=== PATIENT | female | born 1985 | race Caucasian/White ===

== ENCOUNTER 2019-04-10 21:14 | Inpatient (IN) | payer MEDICARE, BC ==
[~2019-04-10] VITALS: Ht 154.9 cm; Wt 82.9 kg
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
[2019-04-10] MEDS ORDERED: loperamide 2mg capsule PO PRN (21:35)
[2019-04-10] MEDS ORDERED: SYN0.088T PO (22:13)
[2019-04-10] MEDS ORDERED: THY60T PO (22:13)
[2019-04-10] MEDS ORDERED: LITH150C8 PO (22:13)
[2019-04-10] MEDS ORDERED: ZIPR20CA2 PO (22:13)
[2019-04-10] MEDS ORDERED: DULO-31 PO (22:13)
[2019-04-10] MEDS: lithium carbonate 150mg capsule PO SCH (22:35)
[2019-04-10] MEDS: ziprasidone 20mg capsule PO SCH (22:36)
[2019-04-10] MEDS: LORazepam 1 MG tablet PO PRN (23:02)
[2019-04-10] MEDS ORDERED: LORazepam 1 MG tablet PO ONE (23:15)
[2019-04-10] MEDS ORDERED: OLANZapine 5mg rapidly disint. tablet PO ONE (23:15)
[2019-04-10] MEDS: acetaminophen 325mg tablet PO PRN (23:31)
[2019-04-11] MEDS ORDERED: levoTHYROXINE 25mcg tablet PO SCH (07:00)
[2019-04-11 07:18] VITALS: BP 115/68
[2019-04-11 07:28] LABS: CHOL/HDL RATIO 3.5 (0.00-4.99); CHOLESTEROL 152 MG/DL (0-200); HDL CHOLESTEROL 44 MG/DL (35-60); LDL CHOLESTEROL 91 MG/DL (50-100); TRIGLYCERIDES 99 MG/DL (20-135)
[2019-04-11] MEDS: lithium carbonate 150mg capsule PO SCH ×2 (07:59→13:06)
[2019-04-11] MEDS: ziprasidone 20mg capsule PO SCH (07:59)
[2019-04-11] MEDS: LORazepam 1 MG tablet PO PRN ×2 (08:52→14:58)
[2019-04-11] MEDS ORDERED: tuberculin, purif. prot. deriv. 5 units/0.1ml ID ONE (10:00)
--- NOTE | 2019-04-11 11:20 | NUR ---
Malnutrition consult: Pt admit w/ depression noted to have no edema/wounds, no weakness, PO 100% regular meals meeting needs w/ BMI 33. At this time pt does not qualify for malnutrition. Addendum: 04/11/19 at [address] Amended: Links added.
[2019-04-11] MEDS ORDERED: nicotine 21mg patch - 24 hr TD ONE (11:35)
[2019-04-11] MEDS: hydrOXYzine 25 MG tablet PO PRN ×2 (12:54→18:57)
[2019-04-11] MEDS ORDERED: PROP20TA6 PO (13:46)
[2019-04-11] MEDS ORDERED: OXYC5TAB2 PO (13:46)
[2019-04-11] MEDS ORDERED: AMOX-580 PO (13:46)
[2019-04-11] MEDS ORDERED: SPIR50TA5 PO (13:46)
[2019-04-11] MEDS ORDERED: FENT-16 TOP (13:48)
[2019-04-11] MEDS ORDERED: VALA500T37 PO (13:49)
[2019-04-11] MEDS ORDERED: CLON1TAB23 PO (13:50)
[2019-04-11] MEDS: fentaNYL 25MCG/hour patch.TD72 TD SCH (14:54)
[2019-04-11] MEDS: acetaminophen 325mg tablet PO PRN (14:58)
[2019-04-11] MEDS ORDERED: olanzapine 10mg tablet PO PRN (15:45)
[2019-04-11] MEDS ORDERED: olanzapine 10mg tablet PO ONE (15:45)
[2019-04-11] MEDS ORDERED: oxyCODONE IR 5mg (immed. release) tablet PO ONE (16:25)
[2019-04-11] MEDS ORDERED: duloxetine 30mg CAPSULE.DR PO ONE (16:35)
[2019-04-11] MEDS: LORazepam 1 MG tablet PO SCH (16:52)
[2019-04-11] MEDS: levoTHYROXINE 88mcg tablet PO SCH (17:18)
--- NOTE | 2019-04-11 18:04 | NUR ---
Nursing Progress Note Legal hold: 5150 Client on involuntary status for DTS. Report received from Nadya AVERY, with use of SBAR. Why are they here: The patient is a 33 year old female admitted on a 5150 hold for DTS. She was transported by EMS from [facility] after being evaluated by [facility] and a 5150 was written. She reportedly took 20 Klonopin tabs in a suicide attempt. While in there ER she AWOL'd from the ER. She was in physical restraints for over 24 hours at one point. When asked why she was in restraints she stated "because the doctor was a bitch" She also required increase observation while using the bathroom because she was engaging in self harm behaviors. She has an open area on her left hand from scratching. Assessment What has happened this shift: Pt resting at change of shift. Once awake she reports needing a nicotine patch, Ativan and a Fentanyl patch for pain. Drive In Theater Attendant encouraged her to take a hot shower to assist with pain management, which she reports did not help. Drive In Theater Attendant consulted with Dr Dow, Dr Saldana and pharmacy staff to get patch filled. Her Fentanyl patch from admit was removed and wasted with Lester AVERY. New patch was placed on Left Lower Abdomen. She has utilized her Ativan X2, Atarax today. Her Synthroid was also increased today. She was given oxycodone PO X1 to manage her pain which she consistently c/o all day. She was tearful and anxious all day. By the end of shift she was resting peacefully. PPD placed today. Assessment: SI/HI: Confirms SI, says it worsens with pain A/VH: report Sleep: 7.25 hrs NOC ADL's: independent Group attendance: yes Were Meds taken: Yes Any med S/E: Reports she has reaction to metal in nicotine patch and would like it changed to the clear kind Mental Status Exam Appearance: clean, hair braided Eye contact: direct, thick glasses Behavior: anxious, pained Speech: clear, normal rate and rhythm Mood: anxious, depressed Affect: depressed Thought process: linear Thought Content: focused on pain management Cognition: A & O X4 Insight: fair Judgment: poor Interventions PRN's used: Ativan X2, Atarax, Nicotine patch Therapeutic interventions: attempted 1:1 assessment, provided therapeutic communication, redirection from excessive drinking when needed, encouraged to go to groups, medication administration/education/monitoring for compliance, monitor Q15 minutes for safety. Line of sight Restraints/seclusion/emergency medication: Line of Sight Justification of Continued Inpatient Treatment: Pt. had a severe suicide attempt further medication adjustment to stabilize current crisis is needed. Without adequate treatment for current situation, pt is at high risk for readmission if discharged at this time.
[2019-04-11 19:57] VITALS: BP 103/49
[2019-04-11] MEDS: propranolol 10mg tablet PO SCH (20:54)
[2019-04-11] MEDS: lithium carbonate 450mg CR tablet PO SCH (20:56)
[2019-04-11] MEDS: traZODone 50mg tablet PO PRN (20:56)
[2019-04-11] MEDS: olanzapine 10mg tablet PO SCH (20:56)
--- NOTE | 2019-04-11 23:42 | NUR ---
Nursing Progress Note Legal hold: 5150 Client on involuntary status for DTS. Report received from Lester AVERY, with use of SBAR. Why are they here: The patient is a 33 year old female admitted on a 5150 hold for DTS. She was transported by EMS from [facility] after being evaluated by [facility] and a 5150 was written. She reportedly took 20 Klonopin tabs in a suicide attempt. While in there ER she AWOL'd from the ER. She was in physical restraints for over 24 hours at one point. When asked why she was in restraints she stated "because the doctor was a bitch" She also required increase observation while using the bathroom because she was engaging in self harm behaviors. She has an open area on her left hand from scratching. Assessment What has happened this shift: Patient is in bed with head covered at change of shift. She has a sitter at her bedside. Patient agrees to a 1:1 assessment. She states she is still having suicidal thoughts with a plan and expresses "That there's less risk (of her acting on her SI), I feel safe here." When asked if she would contract for safety she states "There is still some risk". She states she has 10/10 depression and that she is still having AH. She say's she feels better and that her pain has decreased to 6/10. Patient is isolative and does not leave her room or bed this shift except to use the restroom. She is compliant with her evening medications. Assessment: SI/HI: Confirms SI, states "There's less risk, I feel safe here." But would not contract for safety stating "There is still some risk." A/VH: AH Sleep: See sleep assessment ADL's: Independent Group attendance: No groups this shift Were Meds taken: Yes Any med S/E: None reported or observed Mental Status Exam Appearance: Clean, hair braided Eye contact: Direct, legally blind, but still has minimal vision looks at person talking. Behavior: Anxious, isolative Speech: Clear, normal rate and rhythm Mood: Anxious, depressed Affect: Congruent to mood Thought process: Linear Thought Content: Focused on her anxiety Cognition: A & O X4 Insight: Fair Judgment: Poor Interventions PRN's used: Atarax Therapeutic interventions: 1:1 assessment at bedside, provided therapeutic communication, encouraged to go to groups, medication administration/education/monitoring for compliance, monitor Q15 minutes for safety. Line of sight Restraints/seclusion/emergency medication: Line of Sight Justification of Continued Inpatient Treatment: Pt. had a severe suicide attempt further medication adjustment to stabilize current crisis is needed. Without adequate treatment for current situation, pt is at high risk for readmission if discharged at this time.
[2019-04-12] MEDS: levoTHYROXINE 88mcg tablet PO SCH (07:04)
[2019-04-12 07:39] VITALS: BP 114/64
[2019-04-12 07:42] VITALS: BP 113/63
[2019-04-12] MEDS ORDERED: duloxetine 30mg CAPSULE.DR PO SCH (08:00)
[2019-04-12] MEDS: spironolactone 50 MG tablet PO SCH (08:35)
[2019-04-12] MEDS: olanzapine 10mg tablet PO SCH ×2 (08:36→20:21)
[2019-04-12] MEDS: duloxetine 30mg CAPSULE.DR PO SCH (08:36)
[2019-04-12] MEDS: propranolol 10mg tablet PO SCH ×3 (08:36→20:20)
[2019-04-12] MEDS: LORazepam 1 MG tablet PO SCH ×3 (08:36→19:02)
[2019-04-12] MEDS: thyroid, pork 30mg tablet PO SCH (08:37)
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
[2019-04-12] MEDS: hydrOXYzine 25 MG tablet PO PRN (10:55)
[2019-04-12] MEDS: nicotine 21mg patch - 24 hr TD SCH (10:56)
--- NOTE | 2019-04-12 15:56 | NUR ---
Nursing Progress Note Legal hold: 5150 Client on involuntary status for DTS. Report received from Lester AVERY, with use of SBAR. Why are they here: The patient is a 33 year old female admitted on a 5150 hold for DTS. She was transported by EMS from [facility] after being evaluated by [facility] and a 5150 was written. She reportedly took 20 Klonopin tabs in a suicide attempt. While in there ER she AWOL'd from the ER. She was in physical restraints for over 24 hours at one point. When asked why she was in restraints she stated "because the doctor was a bitch" She also required increase observation while using the bathroom because she was engaging in self harm behaviors. She has an open area on her left hand from scratching. Assessment What has happened this shift: Patient is in bed with head covered at change of shift observation. She has a sitter at her bedside. Patient agrees to a 1:1 assessment. Asked how she felt today in terms of safety patient responded "I'm very suicidal. I still need someone to watch me. Probably for the next 24 hours." When asked if she would contract for safety patient stated "I'll let you know if it gets bad." Did not mention physical pain this shift. Scheduled Ativan given at 1230. Patient slept for remainder of afternoon except to use bathroom. Assessment: SI/HI: Admits to SI A/VH: AH Sleep: Napped this afternoon ADL's: Independent/Showered Group attendance: No groups this shift Were Meds taken: Yes Any med S/E: None reported or observed Mental Status Exam Appearance: Clean, hair braided Eye contact: Direct, legally blind, but still has minimal vision looks at person talking. Behavior: Anxious, isolative Speech: Clear, normal rate and rhythm Mood: Anxious, depressed Affect: Congruent to mood Thought process: Linear Thought Content: Focused on her anxiety Cognition: A & O X4 Insight: Fair Judgment: Poor Interventions PRN's used: Atarax 50mg./Ativan 1 mg./Zyprexa 10 mg. Therapeutic interventions: 1:1 assessment at bedside, provided therapeutic communication, encouraged to go to groups, medication administration/education/monitoring for compliance, monitor Q15 minutes for safety. Line of sight Restraints/seclusion/emergency medication: Line of Sight Justification of Continued Inpatient Treatment: Pt. had a severe suicide attempt further medication adjustment to stabilize current crisis is needed. Without adequate treatment for current situation, pt is at high risk for readmission if discharged at this time.
[2019-04-12 19:54] VITALS: BP 129/78
[2019-04-12] MEDS: lithium carbonate 450mg CR tablet PO SCH (20:20)
[2019-04-12] MEDS: traZODone 50mg tablet PO PRN (20:20)
--- NOTE | 2019-04-12 23:28 | NUR ---
Nursing Progress Note Legal hold: 5150 Client on involuntary status for DTS. Report received from Mini AVERY, with use of SBAR. Why are they here: The patient is a 33 year old female admitted on a 5150 hold for DTS. She was transported by EMS from [facility] after being evaluated by [facility] and a 5150 was written. She reportedly took 20 Klonopin tabs in a suicide attempt. While in there ER she AWOL'd from the ER. She was in physical restraints for over 24 hours at one point. When asked why she was in restraints she stated "because the doctor was a bitch" She also required increase observation while using the bathroom because she was engaging in self harm behaviors. She has an open area on her left hand from scratching. Assessment What has happened this shift: Patient is in bed with head covered at change of shift observation. She has a sitter at her bedside at her door observing her. Patient confirms SI stating "I would bang my head against the wall." She say's she still feels she is at risk for doing this. She say's she is having AH the voices say "I'm worthless, they tell me to kill myself." She say's at time the voices can be command. Patient expresses that she feels fatigued and she thinks it is related to her medication. She is compliant with evening medications and makes her bed after HS meds, then goes to bed. Assessment: SI/HI: Admits to SI A/VH: AH Sleep: See sleep assessment ADL's: Independent/Showered Group attendance: No groups this shift Were Meds taken: Yes Any med S/E: None reported or observed Mental Status Exam Appearance: Clean, hair braided Eye contact: Direct, legally blind, but still has minimal vision looks at person talking. Behavior: Anxious, isolative Speech: Clear, normal rate and rhythm Mood: Anxious, depressed Affect: Congruent to mood Thought process: Linear Thought Content: Focused on SI and medications making her tired Cognition: A & O X4 Insight: Fair Judgment: Poor Interventions PRN's used: Trazodone Therapeutic interventions: 1:1 assessment at bedside, provided therapeutic communication, encouraged to go to groups, medication administration/education/monitoring for compliance, monitor Q15 minutes for safety. Line of sight Restraints/seclusion/emergency medication: Line of Sight Justification of Continued Inpatient Treatment: Pt. had a severe suicide attempt further medication adjustment to stabilize current crisis is needed. Without adequate treatment for current situation, pt is at high risk for readmission if discharged at this time.
[2019-04-13] MEDS: levoTHYROXINE 88mcg tablet PO SCH (07:51)
[2019-04-13] MEDS: olanzapine 10mg tablet PO SCH ×2 (07:52→19:24)
[2019-04-13] MEDS: spironolactone 50 MG tablet PO SCH (07:52)
[2019-04-13] MEDS: propranolol 10mg tablet PO SCH ×3 (07:52→20:11)
[2019-04-13] MEDS: LORazepam 1 MG tablet PO SCH ×3 (07:52→17:17)
[2019-04-13] MEDS: thyroid, pork 30mg tablet PO SCH (07:52)
[2019-04-13] MEDS: duloxetine 30mg CAPSULE.DR PO SCH (07:52)
[2019-04-13 07:58] VITALS: BP 115/61
[2019-04-13] MEDS: nicotine 21mg patch - 24 hr TD SCH (08:00)
[2019-04-13] MEDS: acetaminophen 325mg tablet PO PRN ×2 (10:11→20:11)
[2019-04-13] MEDS: hydrOXYzine 25 MG tablet PO PRN ×3 (10:11→22:03)
[2019-04-13] MEDS: oxyCODONE IR 5mg (immed. release) tablet PO PRN (12:37)
[2019-04-13] MEDS: OLANZapine 5mg rapidly disint. tablet PO PRN (12:37)
--- NOTE | 2019-04-13 15:29 | NUR ---
Verbal order from Dr Dow to give hydroxyzine 50mg po stat d/t pt anxiety. Scheduled dose was in 30mins, override initiated, hydroxyzine administered.
--- NOTE | 2019-04-13 17:32 | NUR ---
Nursing Progress Note Legal hold: 5150 Client on involuntary status for DTS. Report received from Joann Jhaveri RN, with use of SBAR. Why are they here: The patient is a 33 year old female admitted on a 5150 hold for DTS. She was transported by EMS from [facility] after being evaluated by [facility] and a 5150 was written. She reportedly took 20 Klonopin tabs in a suicide attempt. While in there ER she AWOL'd from the ER. She was in physical restraints for over 24 hours at one point. When asked why she was in restraints she stated "because the doctor was a bitch" She also required increase observation while using the bathroom because she was engaging in self harm behaviors. She has an open area on her left hand from scratching. Assessment What has happened this shift: Patient is in bed with head covered at change of shift. She has a sitter at her bedside at her door observing her. Patient confirms SI but doesnt elaborate. She say's she still feels she is at risk. She reports AH that tell her, "I'm worthless, they tell me to kill myself." Patient looks tired. After breakfast she requests to use the phone to call [facility] to make a complaint. She also spoke with this development writer about the [facility] schedule of activites and how it needs to accommodate people with disabilities, it should be spaced correctly and have at least 14 font. Which it clearly does not. Propeller Mechanic spoke with her about using a magnifying glass which she could use to read the schedule, books, and group handouts. FRIDA Andrade also reports she increased all font sizes on her group handouts to accommodate pt. She is compliant with AM medications and requests all PRN medications as well. Pt preemptively asked for Zyprexa zydis saying, Can you give me that dissolvable Zyprexa before lunch? I think Ill need it then. RN encouraged her to use her medications when she has sx that warrant the use. She then requested it before lunch and asked how often it is scheduled for. RN advised her BID and she immediately asked to take another one shortly, although she is in no apparent distress and is resting peacefully on her bed. RN advised against this and encouraged her to rest. Pt then requested her Oxycodone. RN consulted with Dr Dow about lowering her Propranolol d/t pt c/o dizziness. Propranolol was changed to 10mg PO TID. RN also requested to take pt off of LOS as she has remained resting in her bed a majority of the shift. She had a phone call with her sister which went well. PPD was read today which was Negative. Assessment: SI/HI: reports SI, no plan A/VH: reports command AH Sleep: See sleep assessment ADL's: Independent/Showered Group attendance: Were Meds taken: Yes Any med S/E: None reported or observed Mental Status Exam Appearance: Clean, purple sweater Eye contact: Direct, legally blind, but still has minimal vision looks at person talking. Behavior: Sleepy, isolative Speech: Mumbles softly into pillow during assessment with eyes closed Mood: "Depressed and in pain" Affect: Congruent to mood Thought process: goal oriented Thought Content: Focused on medications, timing of medications & pain Cognition: A & O X4 Insight: Fair Judgment: Poor Interventions PRN's used: Atarax X2, Tylenol, Zyprexa zydis X2, Oxycodone Therapeutic interventions: 1:1 assessment at bedside, provided therapeutic communication, encouraged to go to groups, medication administration/education/monitoring for compliance, monitor Q15 minutes for safety. Line of sight Restraints/seclusion/emergency medication: Line of Sight Justification of Continued Inpatient Treatment: Pt. had a severe suicide attempt further medication adjustment to stabilize current crisis is needed. Without adequate treatment for current situation, pt is at high risk for readmission if discharged at this time.
[2019-04-13 20:00] VITALS: BP 123/68
--- NOTE | 2019-04-13 20:00 | NUR ---
Nursing Note: Pt. refusing to remove Nicotine Patch at HS, this sports book writer provided education r/t to possibility of it causing NM, however pt. continues to refuse. Will endorse to AM shift
[2019-04-13] MEDS: lithium carbonate 450mg CR tablet PO SCH (20:10)
--- NOTE | 2019-04-13 21:00 | NUR ---
Nursing Note: Pt. presented with 5250, signed, and reports she is agreeable with continued time on the unit in order to stabilize. Also, this manual writer received a phone call and fax from pt's MD, Arlin June from [facility]. Fax provided additional medical information regarding pt's condition. Will endorse to AM shift, and leave for Dr. Dow in the morning.
[2019-04-13] MEDS: traZODone 50mg tablet PO PRN ×2 (22:02→23:14)
--- NOTE | 2019-04-14 03:19 | NUR ---
Nursing Progress Note: Legal hold: 5250 Client on involuntary status for DTS Report received from nurse with use of SBAR: GENA Morse Why are they here: The patient is a 33 year old female admitted on a 5150 hold for DTS. She was transported by EMS from [facility] after being evaluated by [facility] and a 5150 was written. She reportedly took 20 Klonopin tabs in a suicide attempt r/t interfamilial and job stress. While in there ER she AWOL'd from the ER. She was in physical restraints for over 24 hours at one point. She also required increase observation while using the bathroom because she was engaging in self harm behaviors and was on LOS X2 days while at [facility]. She has an open area on her left hand from scratching. Pt. endorses command A/GIL and has a hx of psychiatric hospitalizations and suicide attempts. Assessment What has happened this shift: Pt. laying in bed sleeping at the beginning of the shift, later approached this automobile and property underwriter to request a PRN for anxiety, however did not exhibit any s/s of of anxiety. Scheduled Zyprexa administered and pt. reported effectiveness. Pt. questioned this automobile and property underwriter regarding the time of day and "if she had received all of her morning medications?" This automobile and property underwriter educated pt. that it was now evening, and assured her that she had received all of her AM medications, pt. voiced understanding. Pt. is alert and oriented X3, however in regard to place reported that she is at [facility]. Pt. reports ongoing S/I with a plan to overdose on medications. She denies any self-harm behaviors and none exhibited this shift. Pt. endorses ongoing command A/GIL, however reports they are better since taking medications. She reports she lives with her mother and this can be stressful because they do not agree on certain things, however she states a coping mechanism as, "Thinking about the ocean." Pt. reports she attends groups, but has a hard time participating at times because of her poor sight. This automobile and property underwriter assured pt. she would endorse this concern to AM shift, and pt. reported content. Pt. appeared to become increasingly restless at HS and reported insomnia, PRN Atrax and Trazodone administered with effectiveness. S/I, H/I: Continued S/I with a plan to overdose on medications A/VH: Ongoing Command A/GIL Sleep: Difficulty falling asleep, PRN Trazodone and MRX1 dose administered with effectiveness ADL's: Independent Group attendance: Reports she attends groups, however has a difficult time participating r/t her visual disability. Were meds taken: Yes Any med S/E: None Mental Status Exam Appearance: Neat and appropriately dressed Eye contact: Good Behavior: Cooperative with some restlessness and fatigue Speech: WNL Mood: Restless with ongoing depression Affect: Constricted Thought process: Linear Thought Content: Command A/GIL and preoccupation with depressed mood and S/I Cognition: A&O X3 (not to place, reports [facility]) Insight: Poor to fair Judgment: Poor to fair Interventions PRN's used: Atrax X1, Tylenol X1, Trazodone X2 (MRX1 dose) Therapeutic interventions: Introduced self and established rapport, ensured contract for safety, encouraged independent performance of ADLs, monitored behavior and need for intervention, reoriented to reality as needed, presented pt. with 5250 paperwork and obtained signature, and maintained Q 15 min safety checks. Restraints/seclusion/emergency medication: N/A Justification of Continued Inpatient Treatment: Pt. continues to require interruption of crisis, medication adjustments, and a safe and therapeutic environment.
[2019-04-14 07:30] VITALS: BP 131/80
[2019-04-14] MEDS: thyroid, pork 30mg tablet PO SCH (07:47)
[2019-04-14] MEDS: duloxetine 30mg CAPSULE.DR PO SCH (07:47)
[2019-04-14] MEDS: levoTHYROXINE 88mcg tablet PO SCH (07:47)
[2019-04-14] MEDS: spironolactone 50 MG tablet PO SCH (07:48)
[2019-04-14] MEDS: LORazepam 1 MG tablet PO SCH ×3 (07:48→17:55)
[2019-04-14] MEDS: olanzapine 10mg tablet PO SCH ×2 (07:48→20:27)
[2019-04-14] MEDS: oxyCODONE IR 5mg (immed. release) tablet PO PRN (07:48)
[2019-04-14] MEDS: propranolol 10mg tablet PO SCH ×3 (07:49→20:27)
[2019-04-14] MEDS: nicotine 21mg patch - 24 hr TD SCH (07:53)
[2019-04-14] MEDS: hydrOXYzine 25 MG tablet PO PRN ×2 (09:33→20:27)
[2019-04-14 10:51] LABS: CLARITY,URINE SLIGHTLY CLOUDY (Clear); COLOR,URINE STRAW (Yellow); GLUCOSE, URINE NEGATIVE (Neg); KETONES,URINE NEGATIVE (Neg); LEUKOCYTE ESTERASE ,URINE NEGATIVE (Neg); NITRITES, URINE NEGATIVE (Neg); OCCULT BLOOD,URINE NEGATIVE (Neg); PH,URINE 6.5 (4.8-8.0); PROTEIN,URINE NEGATIVE (Neg); UROBILINOGEN,URINE 0.2 E.U/dL (0.2-1.0)
[2019-04-14 10:54] LABS: UA COLLECTION TYPE NON-SPECIFIED
[2019-04-14 10:59] LABS: BACTERIA,URINE FEW /HPF (Neg); MUCUS STRANDS NONE SEEN /LPF (Neg); RBC,URINE NONE SEEN /HPF (0-2); SQUAMOUS EPITHELIAL CELL,UR MODERATE /LPF (FEW); WBC,URINE 0-4 /HPF (0-4)
[2019-04-14] MEDS: OLANZapine 5mg rapidly disint. tablet PO PRN (15:10)
[2019-04-14] MEDS: fentaNYL 25MCG/hour patch.TD72 TD SCH (15:10)
--- NOTE | 2019-04-14 16:16 | NUR ---
Nursing Progress Note Legal hold: 5150 Client on involuntary status for DTS. Report received from Joann Jhaveri RN, with use of SBAR. Why are they here: The patient is a 33 year old female admitted on a 5150 hold for DTS. She was transported by EMS from [facility] after being evaluated by [facility] and a 5150 was written. She reportedly took 20 Klonopin tabs in a suicide attempt. While in there ER she AWOL'd from the ER. She was in physical restraints for over 24 hours at one point. When asked why she was in restraints she stated "because the doctor was a bitch" She also required increase observation while using the bathroom because she was engaging in self harm behaviors. She has an open area on her left hand from scratching. Assessment What has happened this shift: Patient awakened before breakfast for medications and breakfast. Patient states that she is very anxious and has been requesting all prns as soon as they are due. Patient has poor vision and uses magnifying glass to look through. Patient reports that she is still suicidal without plan. Reports command A/H telling her to kill herself. SI/HI: reports SI, no plan A/VH: reports command AH Sleep: 7.5 hrs. NOC. Naps during daytime. ADL's: Independent. Group attendance: No. Were Meds taken: Yes Any med S/E: None reported or observed Mental Status Exam Appearance: Slightly disheveled in appearance, unit appropriate. Eye contact: Direct, legally blind, but still has minimal vision looks at person talking. Behavior: Sleepy, isolative Speech: Clear, normal volume and rate. Mood: Depressed, anxious. Affect: Blunted. Thought process: goal oriented Thought Content: Focused on medications, timing of medications & pain Cognition: A & O X4 Insight: Fair Judgment: Poor Interventions PRN's used: Atarax, Ativan, Tylenol, Zyprexa zydis, Oxycodone Therapeutic interventions: 1:1 assessment at bedside, provided therapeutic communication, encouraged to go to groups, medication administration/education/monitoring for compliance, monitor Q15 minutes for safety. Line of sight Restraints/seclusion/emergency medication: None. Justification of Continued Inpatient Treatment: Pt. had a severe suicide attempt further medication adjustment to stabilize current crisis is needed. Without adequate treatment for current situation, pt is at high risk for readmission if discharged at this time.
[2019-04-14] MEDS: LIPASE/PROTEASE/AMYLASE 4,200 unit CAPSULE.DR PO SCH (17:55)
[2019-04-14 20:00] VITALS: BP 128/79
[2019-04-14] MEDS: lithium carbonate 450mg CR tablet PO SCH (20:27)
[2019-04-14] MEDS: traZODone 50mg tablet PO PRN ×2 (20:27→22:48)
[2019-04-14] MEDS: acetaminophen 325mg tablet PO PRN (20:28)
[2019-04-15] MEDS: OLANZapine 5mg rapidly disint. tablet PO PRN ×2 (00:28→10:33)
--- NOTE | 2019-04-15 00:30 | NUR ---
Nursing Note: Pt. unable to sleep and reporting anxiety, Atrax had previously been administered, administered PRN Zyprexa Zydis.
--- NOTE | 2019-04-15 00:58 | NUR ---
Nursing Progress Note: Legal hold: 5250 Client on involuntary status for DTS Report received from nurse with use of SBAR: GENA Morse Why are they here: The patient is a 33 year old female admitted on a 5150 hold for DTS. She was transported by EMS from [facility] after being evaluated by [facility] and a 5150 was written. She reportedly took 20 Klonopin tabs in a suicide attempt r/t interfamilial and job stress. While in there ER she AWOL'd from the ER. She was in physical restraints for over 24 hours at one point. She also required increase observation while using the bathroom because she was engaging in self harm behaviors and was on LOS X2 days while at [facility]. She has an open area on her left hand from scratching. Pt. endorses command A/GIL and has a hx of psychiatric hospitalizations and suicide attempts. Assessment What has happened this shift: Pt. up in Group Room at the beginning of the shift interacting appropriately with others, and appears more animated than the day before. Immediately following HS snack she retreats to her room and requests HS medications. 1:1 completed at bedside, affect remains constricted, however pt. is cooperative and pleasant with underlying anxiety. She reports ongoing S/I with a plan to overdose on medications, but is able to contract for safety and no self harm behaviors exhibited. This casualty underwriter obtained picture of previously self-inflicted abrasion on left hand, dsg covering it is CDI, and picture placed in chart. Pt. states, "My mood is mixed, up and down between manic and sad." However, she reports that her command A/H are better and much harder to distinguish since taking Zyprexa. She also reports that she has been having conversations with her mother and sister on the telephone and the conversations have been positive. Pt. is unsure if she will be returning straight home of if she will possibly be going to a step-down facility upon discharge, she plans to discuss this more with the Mathematics Instructor. Pt. again appears to become increasingly restless at HS and reports insomnia, PRN Atrax and Trazodone X2 administered and will monitor. Also, Fentanyl patch placement verified upon right flank and Tegaderm Dressing placed over it to hold in place. S/I, H/I: Continued S/I with a plan to overdose on medications A/VH: Ongoing Command A/GIL, however hard to distinguish Sleep: Difficulty falling asleep, PRN Trazodone and MRX1 dose administered ADL's: Independent Group attendance: Reports she attends groups Were meds taken: Yes Any med S/E: None Mental Status Exam Appearance: Neat and appropriately dressed Eye contact: Good, however pt. looks down a lot Behavior: Cooperative with some anxiety and fatigue Speech: WNL Mood: More animated today Affect: Constricted Thought process: Linear Thought Content: Command A/GIL and preoccupation with depressed mood and S/I Cognition: A&O X4 Insight: Poor to fair Judgment: Poor to fair Interventions PRN's used: Atrax X1, Tylenol X1, Trazodone X2 (MRX1 dose), and Zyprexa Zydis Therapeutic interventions: Maintained a safe and therapeutic environment, ensured contract for safety, encouraged independent performance of ADLs, monitored behavior and need for intervention, reoriented to reality as needed, obtained picture of previously self-inflicted abrasion on left hand, and maintained Q 15 min safety checks. Restraints/seclusion/emergency medication: N/A Justification of Continued Inpatient Treatment: Pt. continues to require interruption of crisis, medication adjustments, and a safe and therapeutic environment.
[2019-04-15] MEDS: levoTHYROXINE 88mcg tablet PO SCH (06:36)
[2019-04-15] MEDS: hydrOXYzine 25 MG tablet PO PRN ×3 (06:36→19:49)
[2019-04-15 07:21] LABS: AMYLASE 48 U/L (25-115); LIPASE 107 U/L (73-393)
[2019-04-15] MEDS: duloxetine 30mg CAPSULE.DR PO SCH (07:46)
[2019-04-15] MEDS: LORazepam 1 MG tablet PO SCH ×3 (07:46→17:52)
[2019-04-15] MEDS: thyroid, pork 30mg tablet PO SCH (07:46)
[2019-04-15] MEDS: nicotine 21mg patch - 24 hr TD SCH (07:46)
[2019-04-15] MEDS: olanzapine 10mg tablet PO SCH ×2 (07:46→19:49)
[2019-04-15] MEDS: spironolactone 50 MG tablet PO SCH (07:47)
[2019-04-15] MEDS: LIPASE/PROTEASE/AMYLASE 4,200 unit CAPSULE.DR PO SCH ×3 (07:47→17:52)
[2019-04-15] MEDS: propranolol 10mg tablet PO SCH ×3 (07:47→20:36)
[2019-04-15 07:53] VITALS: BP 125/81
[2019-04-15] MEDS: magnesium hydroxide 30ml (MOM) UD suspension PO PRN (10:33)
[2019-04-15] MEDS: docusate sod 100mg capsule PO SCH ×2 (10:33→19:49)
[2019-04-15] MEDS: oxyCODONE IR 5mg (immed. release) tablet PO PRN (13:38)
--- NOTE | 2019-04-15 14:19 | NUR ---
Nursing Progress Note Legal hold: 5150 Client on involuntary status for DTS. Report received from Joann Jhaveri RN, with use of SBAR. Why are they here: The patient is a 33 year old female admitted on a 5150 hold for DTS. She was transported by EMS from [facility] after being evaluated by [facility] and a 5150 was written. She reportedly took 20 Klonopin tabs in a suicide attempt. While in there ER she AWOL'd from the ER. She was in physical restraints for over 24 hours at one point. When asked why she was in restraints she stated "because the doctor was a bitch" She also required increase observation while using the bathroom because she was engaging in self harm behaviors. She has an open area on her left hand from scratching. Assessment What has happened this shift: As soon as report was over, RN was met by patient asking for prns, pt appears to like to keep herself at a certain medicated level. Pt. asked if we could make accommodations for her visual impairment. Informed her that we have increased the font size as suggested for handouts, and had given her a magnifier to help her to see. She states she is going to call a center tomorrow and request a more powerful magnifier. Patient states that she didn't sleep well last night and slept for a few hours during morning. She reports feeling constipated, Colace given, MOM, prune juice x 2. SI/HI: reports SI. Contracts for safety while here, but states she has pills at home. A/VH: reports command AH, states voices are getting less. Sleep: 6.0 hrs. NOC. Naps during daytime. ADL's: Independent. Group attendance: Yes. Were Meds taken: Yes Any med S/E: None reported or observed Mental Status Exam Appearance: Pt. with thick glasses, slightly disheveled in appearance, unit appropriate. Eye contact: Direct, legally blind, but still has minimal vision looks at person talking. Behavior: Sleepy, cooperative, anxious. Speech: Clear, normal volume and rate. Mood: Depressed, anxious. Affect: Blunted. Thought process: goal oriented Thought Content: Focused on medications, timing of medications & pain Cognition: A & O X4 Insight: Fair Judgment: Poor Interventions PRN's used: Atarax, Zyprexa zydis, Oxycodone, MOM, nicotine lozenge Therapeutic interventions: 1:1 assessment at bedside, provided therapeutic communication, encouraged to go to groups, medication administration/education/monitoring for compliance, monitor Q15 minutes for safety. Restraints/seclusion/emergency medication: None. Justification of Continued Inpatient Treatment: Pt. had a severe suicide attempt further medication adjustment to stabilize current crisis is needed. Without adequate treatment for current situation, pt is at high risk for readmission if discharged at this time
--- NOTE | 2019-04-15 18:42 | NUR ---
Patient in room MH 324. I have received report from GENA Morse and had the opportunity to ask questions and assume patient care.
[2019-04-15 19:44] VITALS: BP 99/50
[2019-04-15] MEDS ORDERED: OLANZAPINE 5 MG TABLET PO ONE (20:05)
--- NOTE | 2019-04-15 20:22 | NUR ---
DISCHARGE PLANNING: Spoke w/ staff at [facility] in [facility], similar to [facility]. They can not take pt for same reason [facility] can not, pt must be from [facility] or relocating to [facility]. Spoke to Sophie at [facility] @ [phone] and explained looking for a step-down housing situation (explained what [facility] is) they do not have anything like that but she said they might have some type of step-down support housing pt could go to, she would find out and contact us. Also asked if they had a list of [facility], she will also check. Gave her fax # and Therese's #. Also gave pt Dr. Samaniego gave me to pass on that pt could research independently. Lupe Martin, DANIELW
[2019-04-15] MEDS: traZODone 50mg tablet PO PRN (20:35)
[2019-04-15] MEDS: lithium carbonate 450mg CR tablet PO SCH (20:36)
--- NOTE | 2019-04-16 01:14 | NUR ---
Nursing Progress Note Legal hold: 5250 Client on involuntary status for DTS. Report received from Joann Jhaveri RN, with use of SBAR. Why are they here: The patient is a 33 year old female admitted on a 5150 hold for DTS. She was transported by EMS from [facility] after being evaluated by [facility] and a 5150 was written. She reportedly took 20 Klonopin tabs in a suicide attempt. While in there ER she AWOL'd from the ER. She was in physical restraints for over 24 hours at one point. When asked why she was in restraints she stated "because the doctor was a bitch" She also required increase observation while using the bathroom because she was engaging in self harm behaviors. She has an open area on her left hand from scratching. Assessment What has happened this shift: Patient pleasant, states depressed due to back pain and has suicidal thoughts. Fentanyl patch is helpful. States she hears voices stating she is not worthy and tell her to kill herself. States no active plan, but does have access to pills at home. States she has visual hallucinations that she is in the jungle. This causes her to cover her head with blankets for fear of what she may see. Patient got attention of MD to request increase in zyprexa dose which was granted. PRN/BID zyprexa dose remains unchanged. [place] level increased 1.1 from 1.0. MD decreased lithium dose by half to decrease levels after speaking with patient. SI/HI: reports SI. Contracts for safety while here, but states she has pills at home. A/VH: reports command AH Sleep: Sleeping since 2199 ADL's: Independent. Group attendance: N/A Were Meds taken: Yes Any med S/E: None reported or observed Mental Status Exam Appearance: Pt. with thick glasses, slightly disheveled in appearance, unit appropriate. Eye contact: Direct, legally blind, but still has minimal vision looks at person talking. Behavior: Sleepy, cooperative, anxious. Speech: Clear, normal volume and rate. Mood: Depressed, anxious. Affect: Blunted. Thought process: goal oriented Thought Content: Focused on medications & medication timing/doses Cognition: A & O X4 Insight: Fair Judgment: Poor Interventions PRN's used: Atarax Therapeutic interventions: 1:1 assessment at bedside, provided therapeutic communication, encouraged to go to groups, medication administration/education/monitoring for compliance, monitor Q15 minutes for safety. Restraints/seclusion/emergency medication: None. Justification of Continued Inpatient Treatment: Pt. had a severe suicide attempt further medication adjustment to stabilize current crisis is needed. Without adequate treatment for current situation, pt is at high risk for readmission if discharged at this time
[2019-04-16] MEDS: nicotine 21mg patch - 24 hr TD SCH (07:21)
[2019-04-16] MEDS: LORazepam 1 MG tablet PO SCH ×3 (07:21→17:59)
[2019-04-16] MEDS: levoTHYROXINE 88mcg tablet PO SCH (07:21)
[2019-04-16] MEDS: docusate sod 100mg capsule PO SCH ×2 (08:18→20:05)
[2019-04-16] MEDS: propranolol 10mg tablet PO SCH ×3 (08:18→20:05)
[2019-04-16] MEDS: spironolactone 50 MG tablet PO SCH (08:19)
[2019-04-16] MEDS: duloxetine 30mg CAPSULE.DR PO SCH (08:19)
[2019-04-16] MEDS: OLANZAPINE 5 MG TABLET PO SCH ×2 (08:19→20:05)
[2019-04-16] MEDS: LIPASE/PROTEASE/AMYLASE 4,200 unit CAPSULE.DR PO SCH ×3 (08:22→17:58)
[2019-04-16 08:28] VITALS: BP 121/86
[2019-04-16] MEDS: oxyCODONE IR 5mg (immed. release) tablet PO PRN (09:07)
[2019-04-16] MEDS: hydrOXYzine 25 MG tablet PO PRN (09:07)
[2019-04-16] MEDS ORDERED: magnesium citrate 296ml oral solution PO ONE (11:40)
[2019-04-16] MEDS: acetaminophen 325mg tablet PO PRN (13:07)
--- NOTE | 2019-04-16 13:40 | NUR ---
Nursing Progress Note Legal hold: 5150 Client on involuntary status for DTS. Report received from Joann Jhaveri RN, with use of SBAR. Why are they here: The patient is a 33 year old female admitted on a 5150 hold for DTS. She was transported by EMS from [facility] after being evaluated by [facility] and a 5150 was written. She reportedly took 20 Klonopin tabs in a suicide attempt. While in there ER she AWOL'd from the ER. She was in physical restraints for over 24 hours at one point. When asked why she was in restraints she stated "because the doctor was a bitch" She also required increase observation while using the bathroom because she was engaging in self harm behaviors. She has an open area on her left hand from scratching. Assessment What has happened this shift: Patient anxious this shift, requesting prns (5 in 4.5 hours). Talked to her about coping skills and that she needs to find other things to do to keep herself busy instead of just going to a pill every time. She has been doing this the three days this RN has worked. PCT's also informed me that she is overhydrating. Instructed her that she has a limit of 3 liters on day shift and 3 liters on nights. Pt. upset and crying. Paulina took time and talked with patient regarding coping skills. Pt. was tearful today, not accepting limits on medications or water restrictions. Informed Dr. Dow about prn use and water consumption. Pt. asked when hospitalist was coming to see her, as psychiatrists did not know anything about water intake. SI/HI: reports SI. Contracts for safety while here, but states she has pills at home. A/VH: reports command AH, states voices are getting less. Sleep: 6.25 hrs. NOC. Naps during daytime. ADL's: Independent. Group attendance: Yes. Were Meds taken: Yes Any med S/E: None reported or observed Mental Status Exam Appearance: Pt. with thick glasses, slightly disheveled in appearance, unit appropriate. Eye contact: Direct, legally blind, but still has minimal vision looks at person talking. Behavior: Anxious, crying, not accepting limits. Med seeking. Speech: Clear, normal volume and rate. Mood: Depressed, anxious. Affect: Blunted. Thought process: goal oriented Thought Content: Focused on medications, timing of medications & pain, water intake. Cognition: A & O X4 Insight: Poor. Judgment: Poor Interventions PRN's used: Atarax, Zyprexa zydis, Oxycodone, mag citrate, Tylenol, nicotine lozenge Therapeutic interventions: 1:1 assessment at bedside, provided therapeutic communication, encouraged to go to groups, water restriction as above, coping skills, medication administration/education/monitoring for compliance, monitor Q15 minutes for safety. Restraints/seclusion/emergency medication: None. Justification of Continued Inpatient Treatment: Pt. had a severe suicide attempt further medication adjustment to stabilize current crisis is needed, monitoring patient behaviors. Without adequate treatment for current situation, pt is at high risk for readmission if discharged at this time
[2019-04-16] MEDS: hydrOXYzine 25 MG tablet PO SCH ×2 (15:22→17:59)
[2019-04-16] MEDS: NICOTINE POLACRILEX 2 MG LOZENGE BC PRN (15:22)
[2019-04-16 19:52] VITALS: BP 119/76
[2019-04-16] MEDS: traZODone 50mg tablet PO PRN (20:05)
[2019-04-16] MEDS: lithium carbonate 450mg CR tablet PO SCH (20:06)
--- NOTE | 2019-04-16 21:51 | NUR ---
Nursing Progress Note Legal hold: 5150 Client on involuntary status for DTS. Report received from Mini AVERY, with use of SBAR. Why are they here: The patient is a 33 year old female admitted on a 5150 hold for DTS. She was transported by EMS from [facility] after being evaluated by [facility] and a 5150 was written. She reportedly took 20 Klonopin tabs in a suicide attempt. While in there ER she AWOL'd from the ER. She was in physical restraints for over 24 hours at one point. When asked why she was in restraints she stated "because the doctor was a bitch" She also required increase observation while using the bathroom because she was engaging in self harm behaviors. She has an open area on her left hand from scratching. Assessment What has happened this shift: Pt was in the connolly at change of shift and requested a shower and clean scrubs. 1:1 assessment completed at bedside. Pt is tearful, stating she had a bad day. states her day started bad when she spilled coffee on herself. States she is upset about being told to not use pills as a coping skill, pt states this upset her because her mother says the same thing to her. Pt is crying about limited water intake, states she doesnt feel she should have her water intake monitored, educated pt on overhydration and reason for limitations. Pt was med compliant and was able to calm herself w/reading a book before going to sleep. pt denies s/i, denies a/vh. pt does not want to take off nicotine patch before bed. SI/HI: pt denies s/i A/VH: denies a/vh Sleep: pt reports sleeping well w/trazadone ADL's: Independent. Group attendance: no evening groups Were Meds taken: Yes Any med S/E: thirst Mental Status Exam Appearance: Pt. with thick glasses, adequately groomed and dressed for environment, pt showered tonight Eye contact: Direct Behavior: Anxious, tearful, showered and reading a book Speech: Clear, normal volume and rate. Mood: Depressed, anxious. Affect: Blunted. Thought process: goal oriented Thought Content: c/o not being treated fairly, water intake Cognition: A & O X4 Insight: Poor. Judgment: Poor Interventions PRN's used: nicotine lozenge, trazadone Therapeutic interventions: 1:1 assessment at bedside, provided therapeutic communication, encouraged to go to groups, water restriction as above, coping skills, medication administration/education/monitoring for compliance, monitor Q15 minutes for safety. Restraints/seclusion/emergency medication: None. Justification of Continued Inpatient Treatment: Pt. had a severe suicide attempt further medication adjustment to stabilize current crisis is needed, monitoring patient behaviors. Without adequate treatment for current situation, pt is at high risk for readmission if discharged at this time
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
[2019-04-17] MEDS: spironolactone 50 MG tablet PO SCH (07:36)
[2019-04-17] MEDS: propranolol 10mg tablet PO SCH ×3 (07:36→20:17)
[2019-04-17] MEDS: levoTHYROXINE 88mcg tablet PO SCH (07:36)
[2019-04-17] MEDS: docusate sod 100mg capsule PO SCH ×2 (07:36→20:17)
[2019-04-17] MEDS: nicotine 21mg patch - 24 hr TD SCH (07:36)
[2019-04-17] MEDS: OLANZAPINE 5 MG TABLET PO SCH ×2 (07:37→20:16)
[2019-04-17] MEDS: LORazepam 1 MG tablet PO SCH ×3 (07:37→16:57)
[2019-04-17] MEDS: LIPASE/PROTEASE/AMYLASE 4,200 unit CAPSULE.DR PO SCH ×3 (07:37→16:58)
[2019-04-17] MEDS: duloxetine 30mg CAPSULE.DR PO SCH (07:37)
[2019-04-17 08:01] VITALS: BP 145/76
[2019-04-17] MEDS: NICOTINE POLACRILEX 2 MG LOZENGE BC PRN ×2 (08:43→16:57)
--- NOTE | 2019-04-17 10:16 | NUR ---
Initial: Pt PO 100% regular diet meeting needs. LBM 04/16 large per RN; constipation documented in EMR but resolved per RN. No nutrition concerns at this time. Will continue to monitor. Rec: 1. continue regular diet 2. wt per rx Addendum: 04/17/19 at [address] Amended: Links added.
[2019-04-17] MEDS: hydrOXYzine 25 MG tablet PO SCH ×3 (10:24→16:57)
[2019-04-17] MEDS: acetaminophen 325mg tablet PO PRN (12:10)
[2019-04-17] MEDS: mag hydrox/Alum hydrox/simeth 30ml oral suspension PO PRN (14:47)
[2019-04-17] MEDS: fentaNYL 25MCG/hour patch.TD72 TD SCH (15:03)
--- NOTE | 2019-04-17 17:47 | NUR ---
Nursing Progress Note Legal hold: 5150 Client on involuntary status for DTS. Report received from Nadya AVERY, with use of SBAR. Why are they here: The patient is a 33 year old female admitted on a 5150 hold for DTS. She was transported by EMS from [facility] after being evaluated by [facility] and a 5150 was written. She reportedly took 20 Klonopin tabs in a suicide attempt. While in there ER she AWOL'd from the ER. She was in physical restraints for over 24 hours at one point. When asked why she was in restraints she stated "because the doctor was a bitch" She also required increase observation while using the bathroom because she was engaging in self harm behaviors. She has an open area on her left hand from scratching. Assessment What has happened this shift: Pt was in the [place]olly at change of shift requesting water. Pt reported that she feels bullied because she was put on water restriction. She talked at length about how she believes water should be available to everyone if they are thirsty and how the unit should have a water fountain for people to drink as they please and not have to rely on techs for water. This telegraphic typewriter operator explained to her the reasoning for water restriction (i.e., over-hydration & electrolyte imbalance) and how she is not being bullied. She also has concerns about continuing nicotine patches & milo once she discharges because she would like to quit smoking. She requests a nicotine milo immediately after nicotine patch was placed. She reports last BM was yesterday. Denies any SI, AH/VH. Reports sleeping well last night. Denies any SEs from medications, none objectively observed. Pts sister called in late afternoon wanting to know medications pt is on and her demeanor on the unit. Sister (Dilcia Soares ) reports concerns about pt taking Propranolol since she recalls pt taking it in the past and having severe depression sx because of it. SI/HI: Denies SI A/VH: Denies A/H V/H Sleep: 7.25 hrs NOC ADL's: Independent Group attendance: no Were Meds taken: Yes Any med S/E: pt c/o constant thirst Mental Status Exam Appearance: Pt. with thick glasses, adequately groomed and dressed for environment, pt showered yesterday Eye contact: mostly direct Behavior: Anxious, tired Speech: Clear, normal volume and rate Mood: Depressed, anxious Affect: Blunted Thought process: Goal oriented Thought Content: c/o being bullied about water intake Cognition: A & O X4 Insight: Poor Judgment: Poor Interventions PRN's used: nicotine lozenge X2, Tyenol X1 Therapeutic interventions: 1:1 assessment at bedside, provided therapeutic communication, encouraged to go to groups, water restriction as above, coping skills, medication administration/education/monitoring for compliance, monitor Q15 minutes for safety. Restraints/seclusion/emergency medication: None. Justification of Continued Inpatient Treatment: Pt. had a severe suicide attempt further medication adjustment to stabilize current crisis is needed, monitoring patient behaviors. Without adequate treatment for current situation, pt is at high risk for readmission if discharged at this time
[2019-04-17] MEDS: OLANZapine 5mg rapidly disint. tablet PO PRN (18:40)
[2019-04-17] MEDS: lithium carbonate 450mg CR tablet PO SCH (20:16)
[2019-04-17] MEDS: magnesium hydroxide 30ml (MOM) UD suspension PO PRN (20:19)
[2019-04-17] MEDS: traZODone 50mg tablet PO SCH (20:23)
[2019-04-17 20:27] VITALS: BP 121/69
--- NOTE | 2019-04-17 20:54 | NUR ---
Nursing Progress Note Legal hold: 5150 Client on involuntary status for DTS. Report received from Mini AVERY, with use of SBAR. Why are they here: The patient is a 33 year old female admitted on a 5150 hold for DTS. She was transported by EMS from [facility] after being evaluated by [facility] and a 5150 was written. She reportedly took 20 Klonopin tabs in a suicide attempt. While in there ER she AWOL'd from the ER. She was in physical restraints for over 24 hours at one point. When asked why she was in restraints she stated "because the doctor was a bitch" She also required increase observation while using the bathroom because she was engaging in self harm behaviors. She has an open area on her left hand from scratching. Assessment What has happened this shift: pt was in the hallway at change of shift. 1:1 completed at bedside. Pt is reporting anxiety and requesting zyprexa, pt states she was supposed to get zyprexa earlier and was refused zyprexa, explained to pt she was given prns for anxiety not to long ago but pt insists she continues to feel anxious and zyprexa is all that will help. pt also asks for prn for constipation. Pt is concerned w/discharge plan stating that she feels she needs to be in a "respite care" home for a while before going home. Pt states she feels there are too many "temptations there like pills, knives, and gasoline" that she can suicide with. Pt states "In a perfect world I could live on my own and just have someone that comes in and helps me with my meds once in a while, I can't afford to be on my own." Pt is concerned she will have negative effects from propranolol because her twin sister had negative s/e. pt states her day was better than yesterday, she spent evening reading and took a phone call and told caller she is staying in the "[facility] facilities". Pt is in a pleasant mood this evening despite endorsing s/i. SI/HI: Denies SI/HI A/VH: Denies Sleep: slept well w/trazadone ADL's: Independent Group attendance: no Were Meds taken: Yes Any med S/E: pt c/o excessive thirst Mental Status Exam Appearance: Pt. with thick glasses, adequately groomed and dressed for environment, pt showered yesterday Eye contact: mostly direct Behavior: reading a book, asking for prns, was encouraged to use coping skills. Speech: Clear, normal volume and rate Mood: reports Depressed, anxious, Affect: blunted w/some brightening Thought process: Goal oriented Thought Content: talking about d/c plan Cognition: A & O X4 Insight: Poor Judgment: Poor Interventions PRN's used: zyprexa, milk of mag Therapeutic interventions: 1:1 assessment at bedside, provided therapeutic communication, encouraged to go to groups, water restriction as above, coping skills, medication administration/education/monitoring for compliance, monitor Q15 minutes for safety. Restraints/seclusion/emergency medication: None. Justification of Continued Inpatient Treatment: Pt. had a severe suicide attempt further medication adjustment to stabilize current crisis is needed, monitoring patient behaviors. Without adequate treatment for current situation, pt is at high risk for readmission if discharged at this time Addendum: 04/18/19 at 0522 by Kailee Terry RN Pt woke about 3am, tearful asking for prns and water. Provided pt w/3rd pitcher of water and nicotine lozenge. pt was asking "why am I broken?" suggested pt attempt to get more rest. Pt fell back asleep shortly after.
[2019-04-18] MEDS: NICOTINE POLACRILEX 2 MG LOZENGE BC PRN ×3 (02:58→16:05)
[2019-04-18] MEDS: nicotine 21mg patch - 24 hr TD SCH (07:16)
[2019-04-18] MEDS: propranolol 10mg tablet PO SCH ×2 (07:17→20:52)
[2019-04-18] MEDS: LIPASE/PROTEASE/AMYLASE 4,200 unit CAPSULE.DR PO SCH ×3 (07:17→17:36)
[2019-04-18] MEDS: OLANZAPINE 5 MG TABLET PO SCH ×2 (07:17→20:53)
[2019-04-18] MEDS: LORazepam 1 MG tablet PO SCH ×3 (07:17→17:27)
[2019-04-18] MEDS: spironolactone 50 MG tablet PO SCH (07:17)
[2019-04-18] MEDS: levoTHYROXINE 88mcg tablet PO SCH (07:17)
[2019-04-18] MEDS: docusate sod 100mg capsule PO SCH ×2 (07:17→20:51)
[2019-04-18] MEDS: duloxetine 30mg CAPSULE.DR PO SCH (07:18)
[2019-04-18 08:10] VITALS: BP 137/93
[2019-04-18] MEDS: OLANZapine 5mg rapidly disint. tablet PO PRN ×2 (08:32→18:56)
[2019-04-18] MEDS: hydrOXYzine 25 MG tablet PO SCH ×3 (09:52→17:27)
[2019-04-18] MEDS ORDERED: benztropine 1mg tablet PO PRN (14:40)
--- NOTE | 2019-04-18 15:32 | NUR ---
Nursing Progress Note Legal hold: 5250 Client on involuntary status for DTS. Report received from Nadya AVERY, with use of SBAR. Why are they here: The patient is a 33 year old female admitted on a 5150 hold for DTS. She was transported by EMS from [facility] after being evaluated by [facility] and a 5150 was written. She reportedly took 20 Klonopin tabs in a suicide attempt. While in there ER she AWOL'd from the ER. She was in physical restraints for over 24 hours at one point. When asked why she was in restraints she stated "because the doctor was a bitch" She also required increase observation while using the bathroom because she was engaging in self harm behaviors. She has an open area on her left hand from scratching. Assessment What has happened this shift: Pt resting in bed at change of shift. Pt perseverates on her water restriction (4 pitchers AM & 3 pitchers PM). This senior medical writer again explained to her the reasoning for water restriction (i.e., over-hydration & electrolyte imbalance) and how she is not being bullied. Pt c/o dry mouth from [place], spoke with Dr. Dow about it and was recommended to use candy to suck on to help alleviate that sx. Pt also tearful about interaction with nursing staff in AM, believes she was blown off and ignored like I wasnt even there. RN reassured her that she is being heard and not ignored. Denies any SI, AH/VH. Reports sleeping well last night. Pt concerned about Propranolol possibly making her depression worse. Reports she spoke with Dr. Dow yesterday and they plan on D/Cing it (titration initiated yesterday, pt currently on 10mg BID). Pt approached RN after lunch and reported she has had restless legs for a few days at nighttime and Im sure its from the medications. Dr. Dow was notified and advised her that Cogentin will be started to help with that. SI/HI: Denies SI A/VH: Denies A/H V/H Sleep: 7.25 hrs NOC ADL's: Independent Group attendance: Briefly in AM, frustrated that handouts were not enlarged and refused to use magnifying glass. Attended afternoon group. Were Meds taken: Yes Any med S/E: Pt c/o constant thirst from [place] Mental Status Exam Appearance: Pt. with thick glasses, adequately groomed and dressed for environment, pt showered yesterday Eye contact: mostly direct Behavior: Anxious, tired Speech: Clear, normal volume and rate Mood: Depressed, anxious Affect: Blunted Thought process: Goal oriented Thought Content: c/o being bullied about water intake & staff ignoring her Cognition: A & O X4 Insight: Poor Judgment: Poor Interventions PRN's used: Zyprexa zydis X1, Nicotine milo X1 Therapeutic interventions: 1:1 assessment at bedside, provided therapeutic communication, encouraged to go to groups, water restriction as above, coping skills, medication administration/education/monitoring for compliance, monitor Q15 minutes for safety. Restraints/seclusion/emergency medication: None. Justification of Continued Inpatient Treatment: Pt. had a severe suicide attempt further medication adjustment to stabilize current crisis is needed, monitoring patient behaviors. Without adequate treatment for current situation, pt is at high risk for readmission if discharged at this time.
[2019-04-18] MEDS: mag hydrox/Alum hydrox/simeth 30ml oral suspension PO PRN (19:38)
[2019-04-18 20:00] VITALS: BP 129/81
[2019-04-18] MEDS: lithium carbonate 450mg CR tablet PO SCH (20:51)
[2019-04-18] MEDS: traZODone 50mg tablet PO SCH (20:52)
--- NOTE | 2019-04-18 22:08 | NUR ---
Nursing Progress Note Legal hold: 5250 Client on involuntary status for DTS. Report received from Nadya AVERY, with use of SBAR. Why are they here: The patient is a 33 year old female admitted on a 5150 hold for DTS. She was transported by EMS from [facility] after being evaluated by [facility] and a 5150 was written. She reportedly took 20 Klonopin tabs in a suicide attempt. While in there ER she AWOL'd from the ER. She was in physical restraints for over 24 hours at one point. When asked why she was in restraints she stated "because the doctor was a bitch" She also required increase observation while using the bathroom because she was engaging in self harm behaviors. She has an open area on her left hand from scratching. Assessment What has happened this shift: Pt resting in bed at change of shift. Pt perseverates on her water restriction (4 pitchers AM & 3 pitchers PM). This caption writer again explained to her the reasoning for water restriction (i.e., over-hydration & electrolyte imbalance) and how she is not being bullied. Pt c/o dry mouth from [place], spoke with Dr. Dow about it and was recommended to use candy to suck on to help alleviate that sx. Denies any SI, AH/VH. Reports sleeping well last night. Pt concerned about Propranolol possibly making her depression worse. Reports she spoke with Dr. Dow yesterday and they plan on D/Cing it (titration initiated yesterday, pt currently on 10mg BID). Patient states that she thinks her medications are starting to help. SI/HI: Denies SI A/VH: Denies A/H V/H Sleep: 7.25 hrs NOC ADL's: Independent Group attendance: Briefly in AM, frustrated that handouts were not enlarged and refused to use magnifying glass. Attended afternoon group. Were Meds taken: Yes Any med S/E: Pt c/o constant thirst from [place] Mental Status Exam Appearance: Pt. with thick glasses, adequately groomed and dressed for environment, pt showered yesterday Eye contact: mostly direct Behavior: Anxious, tired Speech: Clear, normal volume and rate Mood: Depressed, anxious Affect: Blunted Thought process: Goal oriented Thought Content: c/o being bullied about water intake & staff ignoring her Cognition: A & O X4 Insight: Poor Judgment: Poor Interventions PRN's used: Zyprexa zydis X1, Nicotine milo X1 Therapeutic interventions: 1:1 assessment at bedside, provided therapeutic communication, encouraged to go to groups, water restriction as above, coping skills, medication administration/education/monitoring for compliance, monitor Q15 minutes for safety. Restraints/seclusion/emergency medication: None. Justification of Continued Inpatient Treatment: Pt. had a severe suicide attempt further medication adjustment to stabilize current crisis is needed, monitoring patient behaviors. Without adequate treatment for current situation, pt is at high risk for readmission if discharged at this time.
[2019-04-19 07:39] VITALS: BP 141/85
[2019-04-19] MEDS: levoTHYROXINE 88mcg tablet PO SCH (07:39)
[2019-04-19] MEDS: LIPASE/PROTEASE/AMYLASE 4,200 unit CAPSULE.DR PO SCH ×3 (07:40→17:21)
[2019-04-19] MEDS: propranolol 10mg tablet PO SCH ×2 (07:40→20:45)
[2019-04-19] MEDS: LORazepam 1 MG tablet PO SCH ×3 (07:40→17:21)
[2019-04-19] MEDS: spironolactone 50 MG tablet PO SCH (07:40)
[2019-04-19] MEDS: docusate sod 100mg capsule PO SCH ×2 (07:40→20:46)
[2019-04-19] MEDS: OLANZAPINE 5 MG TABLET PO SCH ×2 (07:41→20:46)
[2019-04-19] MEDS: duloxetine 30mg CAPSULE.DR PO SCH (07:41)
[2019-04-19] MEDS: nicotine 21mg patch - 24 hr TD SCH (07:42)
[2019-04-19] MEDS: acetaminophen 325mg tablet PO PRN ×2 (08:26→14:45)
[2019-04-19] MEDS: NICOTINE POLACRILEX 2 MG LOZENGE BC PRN ×2 (09:11→14:03)
[2019-04-19] MEDS: OLANZapine 5mg rapidly disint. tablet PO PRN ×2 (09:44→19:15)
[2019-04-19] MEDS: hydrOXYzine 25 MG tablet PO SCH ×3 (10:48→17:21)
[2019-04-19] MEDS: mag hydrox/Alum hydrox/simeth 30ml oral suspension PO PRN (15:58)
--- NOTE | 2019-04-19 16:54 | NUR ---
NURSING PROGRESS NOTE Legal hold: 5250 Client on involuntary status for DTS. Report received from Nadya AVERY, with use of SBAR. Why are they here: The patient is a 33 year old female admitted on a 5150 hold for DTS. She was transported by EMS from [facility] after being evaluated by [facility] and a 5150 was written. She reportedly took 20 Klonopin tabs in a suicide attempt. While in there ER she AWOL'd from the ER. She was in physical restraints for over 24 hours at one point. When asked why she was in restraints she stated "because the doctor was a bitch" She also required increase observation while using the bathroom because she was engaging in self harm behaviors. She has an open area on her left hand from scratching. Assessment What has happened this shift: The patient was awake at change of shift. Depressed mood and anxious affect. Denies suicidal thoughts. Spending time in morning working extensively on worksheets, asking for help and trying to make her way through. Educated and intelligent. Cooperative and polite. Seeking help. Multiple somatic complaints throughout day, back pain, menstrual cramping, and stomach upset due to acid reflux. She spent some time mid morning reading a book. At approx. 10:00 she reported hearing "muffled voices" as her anxiety increased, asked for a prn and received zyprexa, she then spent time walking in hallway in attempt to calm self which did seem quite effective. Reports her Mother is "controlling and negative" about her taking medications and this causes contention between them at home. She attends all groups and meals and is medication compliant. SI/HI: Denies SI A/VH: muffled AH's Sleep: Naps at times ADL's: Independent Group attendance: x2 Were Meds taken: Yes Any med S/E: thirst Mental Status Exam Appearance: Pt. with thick glasses, adequately groomed and dressed for environment Eye contact: minimal Behavior: Anxious, cooperative Speech: Clear, normal volume and rate Mood: Depressed, anxious Affect: Blunted Thought process: Goal oriented Thought Content: orksheet completion Cognition: A & O X4 Insight: Poor Judgment: Poor Interventions PRN's used: Zyprexa, tylenol, maalox Therapeutic interventions: 1:1 assessment at bedside, provided therapeutic communication, encouraged to go to groups, water restriction as above, coping skills, medication administration/education/monitoring for compliance, monitor Q15 minutes for safety. Restraints/seclusion/emergency medication: None. Justification of Continued Inpatient Treatment: Pt. had a severe suicide attempt further medication adjustment to stabilize current crisis is needed, monitoring patient behaviors. Without adequate treatment for current situation, pt is at high risk for readmission if discharged at this time.
[2019-04-19 19:35] VITALS: BP 121/77
[2019-04-19] MEDS: traZODone 50mg tablet PO SCH (20:45)
[2019-04-19] MEDS: lithium carbonate 450mg CR tablet PO SCH (20:45)
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
[2019-04-20] MEDS: levoTHYROXINE 88mcg tablet PO SCH (06:47)
[2019-04-20] MEDS: LIPASE/PROTEASE/AMYLASE 4,200 unit CAPSULE.DR PO SCH ×3 (06:48→17:33)
[2019-04-20 07:58] VITALS: BP 132/53
[2019-04-20] MEDS: nicotine 21mg patch - 24 hr TD SCH (08:30)
[2019-04-20] MEDS: spironolactone 50 MG tablet PO SCH (08:30)
[2019-04-20] MEDS: LORazepam 1 MG tablet PO SCH ×3 (08:31→17:33)
[2019-04-20] MEDS: docusate sod 100mg capsule PO SCH ×2 (08:31→20:05)
[2019-04-20] MEDS: duloxetine 30mg CAPSULE.DR PO SCH (08:31)
[2019-04-20] MEDS: acetaminophen 325mg tablet PO PRN ×2 (08:32→15:44)
[2019-04-20] MEDS: propranolol 10mg tablet PO SCH ×2 (08:32→20:06)
[2019-04-20] MEDS: OLANZAPINE 5 MG TABLET PO SCH ×2 (08:41→20:05)
[2019-04-20] MEDS: valacyclovir 500mg tablet PO SCH ×2 (08:41→20:05)
[2019-04-20] MEDS: NICOTINE POLACRILEX 2 MG LOZENGE BC PRN ×2 (09:18→14:39)
[2019-04-20] MEDS: hydrOXYzine 25 MG tablet PO SCH ×3 (10:32→17:33)
[2019-04-20] MEDS: fentaNYL 25MCG/hour patch.TD72 TD SCH (15:28)
[2019-04-20] MEDS: OLANZapine 5mg rapidly disint. tablet PO PRN (15:45)
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
[2019-04-20 20:00] VITALS: BP 136/91
[2019-04-20] MEDS: lithium carbonate 450mg CR tablet PO SCH (20:05)
[2019-04-20] MEDS: traZODone 50mg tablet PO SCH (20:05)
--- NOTE | 2019-04-21 02:13 | NUR ---
Nursing Progress Note Legal hold: 5250 Exp. 04/27 @ 5414 Client on involuntary status for DTS. Report received from GENA Egan with use of SBAR. Why are they here: The patient is a 33 year old female admitted on a 5150 hold for DTS. She was transported by EMS from [facility] after being evaluated by [facility] and a 5150 was written. She reportedly took 20 Klonopin tabs in a suicide attempt. While in there ER she AWOL'd from the ER. She was in physical restraints for over 24 hours at one point. When asked why she was in restraints she stated "because the doctor was a bitch" She also required increase observation while using the bathroom because she was engaging in self harm behaviors. She has an open area on her left hand from scratching. Assessment What has happened this shift: Pt was sitting in T.V room looking out window at shift change. Pt c/o of feeling anxious due to another patient acting out. Pt also c/o feeling "manic." Pt was speaking rapidly and was jumping from thought to thought. Pt had already received Atarax, Ativan and Zyprexa from previous shift. Worked on deep breathing and some distraction techniques with patient, with little effect. Pt perseverating on why her [place] was reduced and that her doctor wasn't giving her any additional PRN medications. Pt was working herself up. Pt's scheduled medications were given at 1999. Pt later requested her PRN Zyprexa - again reenforced CBT, which was effective. Pt currently sleeping with no acute distress noted. 1:1 completed a bedside. Pt kept Nicotine patch on. Fentanyl patch on right side CDI. SI/HI: Pt denies. None observed A/VH: Reports muffled voices. Denies VH Sleep: Currently sleeping- Scheduled Trazadone 50 mg administered. ADL's: Independent Group attendance: shiftman, no group Were Meds taken: Medication compliant Any med S/E: Thirst Mental Status Exam Appearance: Pt. with thick glasses, adequately groomed and dressed for unit. Eye contact: Intermittent Behavior: Cooperative, anxious Speech: Hyperverbal Mood: Depressed, anxious Affect: Constricted Thought process: Racing thoughts Thought Content: "I need something to calm down" Cognition: Intact Insight: Poor Judgment: Poor Interventions PRN's used: Zyprexa Therapeutic interventions: 1:1 assessment at bedside, provided therapeutic communication, encouraged to go to groups, water restriction as above, coping skills, medication administration/education/monitoring for compliance, monitor Q15 minutes for safety. Restraints/seclusion/emergency medication: None. Justification of Continued Inpatient Treatment: Pt. had a severe suicide attempt further medication adjustment to stabilize current crisis is needed, monitoring patient behaviors. Without adequate treatment for current situation, pt is at high risk for readmission if discharged at this time.
[2019-04-21] MEDS: LIPASE/PROTEASE/AMYLASE 4,200 unit CAPSULE.DR PO SCH ×3 (07:02→17:08)
[2019-04-21] MEDS: levoTHYROXINE 88mcg tablet PO SCH (07:02)
[2019-04-21] MEDS: nicotine 21mg patch - 24 hr TD SCH (07:48)
[2019-04-21] MEDS: LORazepam 1 MG tablet PO SCH ×3 (07:48→17:08)
[2019-04-21] MEDS: spironolactone 50 MG tablet PO SCH (07:49)
[2019-04-21] MEDS: duloxetine 30mg CAPSULE.DR PO SCH (07:49)
[2019-04-21] MEDS: propranolol 10mg tablet PO SCH ×2 (07:49→20:42)
[2019-04-21] MEDS: OLANZAPINE 5 MG TABLET PO SCH ×2 (07:49→20:42)
[2019-04-21] MEDS: valacyclovir 500mg tablet PO SCH ×2 (07:49→20:42)
[2019-04-21] MEDS: docusate sod 100mg capsule PO SCH ×2 (07:49→20:42)
[2019-04-21] MEDS: acetaminophen 325mg tablet PO PRN ×2 (07:50→17:09)
[2019-04-21 08:00] VITALS: BP 130/90
[2019-04-21 08:22] LABS: BASOPHILS % (AUTO) 0.5 % (0-1); EOSINOPHILS # (AUTO) 0.3 X10'3 (0-0.9); EOSINOPHILS % (AUTO) 3.3 % (0-6); HEMATOCRIT 42.4 % (35.0-45.0); HEMOGLOBIN 14.5 g/dl (12.0-16.0); LYMPHOCYTES # (AUTO) 2.2 X10'3 (1.1-4.8); MEAN CORPUSCULAR HEMOGLOBIN 29.5 PG (27.0-31.0); MEAN CORPUSCULAR HGB CONC 34.2 g/dL (33.0-36.5); MEAN CORPUSCULAR VOLUME 86.1 FL (78-98); MEAN PLATELET VOLUME 8.4 FL (7.4-10.4); MONOCYTES # (AUTO) 0.4 X10'3 (0-0.9); MONOCYTES % (AUTO) 5.7 % (2-12); NEUTROPHILS # (AUTO) 4.7 X10'3 (1.8-7.7); NEUTROPHILS % (AUTO) 61.5 % (42-75); PLATELET COUNT 223 X10'3 (140-440); RED BLOOD COUNT 4.93 X10'6 (4.20-5.60); WHITE BLOOD COUNT 7.7 X10'3 (4.5-11.0)
[2019-04-21] MEDS: NICOTINE POLACRILEX 2 MG LOZENGE BC PRN ×3 (08:34→18:03)
[2019-04-21] MEDS: hydrOXYzine 25 MG tablet PO SCH ×3 (09:53→17:08)
[2019-04-21] MEDS: OLANZapine 5mg rapidly disint. tablet PO PRN (13:44)
[2019-04-21] MEDS ORDERED: lithium carbonate 300mg SR tablet (LithoBID) PO ONE (13:50)
--- NOTE | 2019-04-21 14:46 | NUR ---
NURSING PROGRESS NOTE Legal hold: 5250 Client on involuntary status for DTS. Report received from GENA Strauss with use of SBAR. Why are they here: The patient is a 33 year old female admitted on a 5150 hold for DTS. She was transported by EMS from [facility] after being evaluated by [facility] and a 5150 was written. She reportedly took 20 Klonopin tabs in a suicide attempt. While in there ER she AWOL'd from the ER. She was in physical restraints for over 24 hours at one point. When asked why she was in restraints she stated "because the doctor was a bitch" She also required increase observation while using the bathroom because she was engaging in self harm behaviors. She has an open area on her left hand from scratching. Assessment What has happened this shift: The patient was awake at change of shift. Depressed and anxious mood, mildly labile, constricted affect. Became anxious in a.m. when other patient was acting out, wanting prn's. Pressured speech. [place] level draw this morning <0.4. MD increased [place] today, patient reports lessened anxiety later in the day when disruptive patient calmed down. Education regarding CBT and other coping skills was provided. Attended all groups and intent on doing "worksheets and homework." Patient is motivated and understands her illness. Denies suicidal thoughts. SI/HI: Denies SI A/VH: muffled AH's Sleep: Naps at times ADL's: Independent Group attendance: x2 Were Meds taken: Yes Any med S/E: thirst Mental Status Exam Appearance: Pt. with thick glasses, adequately groomed and dressed for environment Eye contact: moderate Behavior: Anxious, cooperative Speech: Clear, normal volume and slightly pressured at times Mood: Depressed, anxious Affect: Constricted Thought process: Goal oriented Thought Content: worksheet completion "homework" Cognition: A & O X4 Insight: Fair Judgment: Fair Interventions PRN's used: Zyprexa, Tylenol, Therapeutic interventions: 1:1 assessment at bedside, provided therapeutic communication, encouraged to go to groups, water restriction as above, coping skills, medication administration/education/monitoring for compliance, monitor Q15 minutes for safety. Restraints/seclusion/emergency medication: None. Justification of Continued Inpatient Treatment: Pt. had a severe suicide attempt further medication adjustment to stabilize current crisis is needed, monitoring patient behaviors. Without adequate treatment for current situation, pt is at high risk for readmission if discharged at this time.
[2019-04-21] MEDS: mag hydrox/Alum hydrox/simeth 30ml oral suspension PO PRN (16:22)
[2019-04-21 20:07] VITALS: BP 135/86
[2019-04-21] MEDS: traZODone 50mg tablet PO SCH (20:42)
[2019-04-21] MEDS: lithium carbonate 450mg CR tablet PO SCH (20:42)
--- NOTE | 2019-04-21 22:46 | NUR ---
1:1 Social Work Note: Patient asked to review her worksheets on identifying her triggers, what she still needed to work on whach included pt wanting to get off her pain medications. After a discussion about dependence/addiction athe affects on the brain and so forth, pt asked if [facility] did detox or if there was and inpt Tx program she could go to from here to get off her paing meds before she went home. This feature writer discussed [place] and ARt with her. Pt said she is very interseted in doing so. Suggested she speak w/ Dr. Samaniego and if determines to move forward have FRIDA Dsouza or FRIDA Del Rio set up interview w/ Art from [place]. Lupe Martin, [facility]
--- NOTE | 2019-04-21 23:54 | NUR ---
Nursing Progress Note Legal hold: 5250 Exp. 04/27 @ 2 Client on involuntary status for DTS. Report received from GENA Egan with use of SBAR. Why are they here: The patient is a 33 year old female admitted on a 5150 hold for DTS. She was transported by EMS from [facility] after being evaluated by [facility] and a 5150 was written. She reportedly took 20 Klonopin tabs in a suicide attempt. While in there ER she AWOL'd from the ER. She was in physical restraints for over 24 hours at one point. When asked why she was in restraints she stated "because the doctor was a bitch" She also required increase observation while using the bathroom because she was engaging in self harm behaviors. She has an open area on her left hand from scratching. Assessment What has happened this shift: Pt visible on unit at shift change. Pt reports "feeling less anxious." Pt's speech is less rapid and pt appears to be less anxious then last night. Pt states "I knew my lithium level was low." Pt is referring to how anxious she was the night before. Pt's [place] level was <0.4 and was given a NOW 300mg dose of [place] on day shift. Pt retired to room to read, was up for HS snack, requested her HS medications and went to bed. SI/HI: Pt denies. None observed A/VH: Reports muffled voices. Denies VH Sleep: Currently sleeping- Scheduled Trazadone 50 mg administered. ADL's: Independent Group attendance: data analysis manager, no group Were Meds taken: Medication compliant Any med S/E: Thirst Mental Status Exam Appearance: Pt. with thick glasses, adequately groomed and dressed for unit. Eye contact: Fairs Behavior: Cooperative, anxious Speech: Clear, normal volume, slightly pressured at times Mood: Depressed, anxious Affect: Constricted Thought process: Linear Thought Content: "I knew my [place] level was low" Cognition: Intact Insight: Fair Judgment: Fair Interventions PRN's used: None Therapeutic interventions: 1:1 assessment at bedside, provided therapeutic communication, encouraged to go to groups, water restriction as above, coping skills, medication administration/education/monitoring for compliance, monitor Q15 minutes for safety. Restraints/seclusion/emergency medication: None. Justification of Continued Inpatient Treatment: Pt. had a severe suicide attempt further medication adjustment to stabilize current crisis is needed, monitoring patient behaviors. Without adequate treatment for current situation, pt is at high risk for readmission if discharged at this time.
[2019-04-22] MEDS: LORazepam 1 MG tablet PO SCH ×3 (07:18→16:55)
[2019-04-22] MEDS: levoTHYROXINE 88mcg tablet PO SCH (07:18)
[2019-04-22] MEDS: OLANZAPINE 5 MG TABLET PO SCH ×2 (07:18→20:41)
[2019-04-22] MEDS: spironolactone 50 MG tablet PO SCH (07:19)
[2019-04-22] MEDS: LIPASE/PROTEASE/AMYLASE 4,200 unit CAPSULE.DR PO SCH ×3 (07:19→16:56)
[2019-04-22] MEDS: valacyclovir 500mg tablet PO SCH ×2 (07:19→20:40)
[2019-04-22] MEDS: duloxetine 30mg CAPSULE.DR PO SCH (07:19)
[2019-04-22] MEDS: docusate sod 100mg capsule PO SCH ×2 (07:19→20:38)
[2019-04-22] MEDS: propranolol 10mg tablet PO SCH ×2 (07:19→20:39)
[2019-04-22] MEDS: nicotine 21mg patch - 24 hr TD SCH (07:23)
[2019-04-22 08:01] VITALS: BP 111/84
[2019-04-22] MEDS: NICOTINE POLACRILEX 2 MG LOZENGE BC PRN ×2 (09:01→17:40)
[2019-04-22] MEDS: acetaminophen 325mg tablet PO PRN ×2 (09:03→17:26)
[2019-04-22] MEDS: hydrOXYzine 25 MG tablet PO SCH ×3 (09:51→16:56)
[2019-04-22] MEDS: OLANZapine 5mg rapidly disint. tablet PO PRN (12:39)
[2019-04-22] MEDS ORDERED: lamoTRIgine 25mg tablet PO ONE (14:25)
--- NOTE | 2019-04-22 16:12 | NUR ---
Nursing Progress Note: Legal hold: 5250 Exp. 04/27 @ 2 Client on involuntary status for DTS. Report received from GENA Quigley with use of SBAR. Why are they here: The patient is a 33 year old female admitted on a 5150 hold for DTS. She was transported by EMS from [facility] after being evaluated by [facility] and a 5150 was written. She reportedly took 20 Klonopin tabs in a suicide attempt. While in there ER she AWOL'd from the ER. She was in physical restraints for over 24 hours at one point. When asked why she was in restraints she stated "because the doctor was a bitch" She also required increase observation while using the bathroom because she was engaging in self harm behaviors. She has an open area on her left hand from scratching. Assessment What has happened this shift: Pt. Had just returned from shower and was in her room. Upon introduction, patient was pleasant, rating her depression and anxiety at a 7-8/10. Again requested a 5X-6X magnifying glass to assist with vision. She had requested her 3rd pitcher of water for the shift at 1100. When she again asked for more water, this publications writer explained that it would be the last one for the day. Patient became very angry, anxious and tearful. She explained to this publications writer that I was accusatory and increased her anxiety to over a 10 on a 0-10 scale. A friend provider her with a 5X magnifying glass which she seemed thankful for. Patient met with Dr. Samaniego and nurse to discuss her frustration with water limit. Pt. Continued to demonstrate increased anxiety related to being told she had drank 3 pitchers before 1200 SI/HI: states continues to have a plan but would not elaborate A/VH: Denies. Sleep: 7.25 ADL's: Independent Group attendance: yes, requests that handouts be a minimum of 22 point font. Were Meds taken: Medication compliant Any med S/E: Thirst Mental Status Exam Appearance: Pt. with thick glasses, adequately groomed and dressed for unit. Eye contact: Fairs Behavior: Cooperative, anxious Speech: Clear, normal volume, slightly pressured at times Mood: Depressed, anxious Affect: Constricted Thought process: Linear Thought Content: focused on managing water intake Cognition: Intact Insight: Fair Judgment: Fair Interventions PRN's used: Olazapine Therapeutic interventions: 1:1 assessment at bedside, provided therapeutic communication, encouraged to go to groups, water restriction as above, coping skills, medication administration/education/monitoring for compliance, monitor Q15 minutes for safety. Restraints/seclusion/emergency medication: None. Justification of Continued Inpatient Treatment: Pt. had a severe suicide attempt further medication adjustment to stabilize current crisis is needed, monitoring patient behaviors. Without adequate treatment for current situation, pt is at high risk for readmission if discharged at this time.
[2019-04-22] MEDS: mag hydrox/Alum hydrox/simeth 30ml oral suspension PO PRN (18:56)
[2019-04-22 19:55] VITALS: BP 133/93
[2019-04-22] MEDS: lithium carbonate 450mg CR tablet PO SCH (20:39)
[2019-04-22] MEDS: traZODone 50mg tablet PO SCH (20:41)
[2019-04-22] MEDS: clonazePAM 1mg tablet PO SCH (20:42)
--- NOTE | 2019-04-22 22:30 | NUR ---
Nursing Progress Note: Legal hold: 5250 Exp. 04/27 @ 0915 Client on involuntary status for DTS. Report received from GENA Egan with use of SBAR. Why are they here: The patient is a 33 year old female admitted on a 5150 hold for DTS. She was transported by EMS from [facility] after being evaluated by [facility] and a 5150 was written. She reportedly took 20 Klonopin tabs in a suicide attempt. While in there ER she AWOL'd from the ER. She was in physical restraints for over 24 hours at one point. When asked why she was in restraints she stated "because the doctor was a bitch" She also required increase observation while using the bathroom because she was engaging in self harm behaviors. She has an open area on her left hand from scratching. Assessment What has happened this shift: Pt. was in bed reading at change off shift. She got up around snack time and ate snack in group room with her peers. Pt states her depression and anxiety is 7of 10. Pt was upset and crying about being on a water restriction. Pt requested a Prn Maalox fo GI discomfort which was helpful. SI/HI: states continues to have a plan but would not elaborate A/VH: Denies. Sleep: 7.25 ADL's: Independent Group attendance: yes, requests that handouts be a minimum of 22 point font. Were Meds taken: Medication compliant Any med S/E: Thirst Mental Status Exam Appearance: Pt. with thick glasses, adequately groomed and dressed for unit. Eye contact: Fairs Behavior: Cooperative, anxious Speech: Clear, normal volume, slightly pressured at times Mood: Depressed, anxious Affect: Constricted Thought process: Linear Thought Content: focused on managing water intake Cognition: Intact Insight: Fair Judgment: Fair Interventions PRN's used: Maalox Therapeutic interventions: 1:1 assessment at bedside, provided therapeutic communication, encouraged to go to groups, water restriction as above, coping skills, medication administration/education/monitoring for compliance, monitor Q15 minutes for safety. Restraints/seclusion/emergency medication: None. Justification of Continued Inpatient Treatment: Pt. had a severe suicide attempt further medication adjustment to stabilize current crisis is needed, monitoring patient behaviors. Without adequate treatment for current situation, pt is at high risk for readmission if discharged at this time.
[2019-04-23] MEDS: acetaminophen 325mg tablet PO PRN ×2 (07:20→12:50)
[2019-04-23] MEDS: clonazePAM 1mg tablet PO SCH ×2 (07:21→20:49)
[2019-04-23] MEDS: docusate sod 100mg capsule PO SCH ×2 (07:21→20:47)
[2019-04-23] MEDS: levoTHYROXINE 88mcg tablet PO SCH (07:21)
[2019-04-23] MEDS: duloxetine 30mg CAPSULE.DR PO SCH (07:22)
[2019-04-23] MEDS: LIPASE/PROTEASE/AMYLASE 4,200 unit CAPSULE.DR PO SCH ×3 (07:22→16:46)
[2019-04-23] MEDS: propranolol 10mg tablet PO SCH ×2 (07:22→20:47)
[2019-04-23] MEDS: OLANZAPINE 5 MG TABLET PO SCH ×2 (07:23→20:48)
[2019-04-23] MEDS: valacyclovir 500mg tablet PO SCH ×2 (07:23→20:49)
[2019-04-23] MEDS: lamoTRIgine 25mg tablet PO SCH (07:24)
[2019-04-23] MEDS: spironolactone 50 MG tablet PO SCH (07:24)
[2019-04-23] MEDS: nicotine 21mg patch - 24 hr TD SCH (07:25)
[2019-04-23] MEDS: NICOTINE POLACRILEX 2 MG LOZENGE BC PRN ×3 (08:41→17:08)
[2019-04-23 08:44] VITALS: BP 125/79
[2019-04-23] MEDS: hydrOXYzine 25 MG tablet PO SCH ×3 (10:12→16:47)
[2019-04-23] MEDS: OLANZapine 5mg rapidly disint. tablet PO PRN ×2 (10:46→17:07)
--- NOTE | 2019-04-23 10:59 | NUR ---
reassessment: Pt PO 100% regular diet meeting needs. LBM 04/22. No nutrition concerns at this time. Will continue to monitor. Rec: 1. continue regular diet 2. wt per rx Addendum: 04/23/19 at [address] Amended: Links added.
[2019-04-23] MEDS: fentaNYL 25MCG/hour patch.TD72 TD SCH (14:56)
[2019-04-23] MEDS: mag hydrox/Alum hydrox/simeth 30ml oral suspension PO PRN (14:57)
[2019-04-23] MEDS ORDERED: lithium carbonate 300mg SR tablet (LithoBID) PO ONE ×2 (15:40→16:15)
[2019-04-23] MEDS ORDERED: lithium carbonate 450mg CR tablet PO ONE (15:40)
[2019-04-23] MEDS ORDERED: asenapine 5mg TAB.SUBL SL ONE (15:40)
[2019-04-23] MEDS ORDERED: duloxetine 30mg CAPSULE.DR PO ONE (15:40)
--- NOTE | 2019-04-23 15:54 | NUR ---
Nursing Progress Note: Legal hold: 5250 Exp. 04/27 @ 7191 Client on involuntary status for DTS. Report received from GENA Quigley with use of SBAR. Why are they here: The patient is a 33 year old female admitted on a 5150 hold for DTS. She was transported by EMS from [facility] after being evaluated by [facility] and a 5150 was written. She reportedly took 20 Klonopin tabs in a suicide attempt. While in there ER she AWOL'd from the ER. She was in physical restraints for over 24 hours at one point. When asked why she was in restraints she stated "because the doctor was a bitch" She also required increase observation while using the bathroom because she was engaging in self harm behaviors. She has an open area on her left hand from scratching. Assessment What has happened this shift: Patient was sleeping at change of shift and up before breakfast. Patient was frustrated because of her limit of water pitchers. Patient also upset because she is no longer on [place]. Dr Samaniego placed patient back on [place] this afternoon. Patient at nurses station for information and PRN medication often. Patient appears very needy wanting clarification about water, medication, seeing physician. Patient states she is very depressed and still suicidal but won't talk about the plan. Patient walking the halls and appears depressed. SI/HI: Sucidal ideation A/VH: Denies. Sleep: None during the day. ADL's: Independent Group attendance: yes, requests that handouts be a minimum of 22 point font. Were Meds taken: Medication compliant Any med S/E: Thirst Mental Status Exam Appearance: Pt. with thick glasses, adequately groomed and dressed for unit. Eye contact: Fairs Behavior: Cooperative, anxious Speech: Clear, normal volume, slightly pressured at times Mood: Depressed, anxious Affect: Constricted Thought process: Linear Thought Content: focused on managing water intake Cognition: Intact Insight: Fair Judgment: Fair Interventions PRN's used: Olazapine Therapeutic interventions: 1:1 assessment at bedside, provided therapeutic communication, encouraged to go to groups, water restriction as above, coping skills, medication administration/education/monitoring for compliance, monitor Q15 minutes for safety. Restraints/seclusion/emergency medication: None. Justification of Continued Inpatient Treatment: Pt. had a severe suicide attempt further medication adjustment to stabilize current crisis is needed, monitoring patient behaviors. Without adequate treatment for current situation, pt is at high risk for readmission if discharged at this time.
[2019-04-23] MEDS: traZODone 50mg tablet PO SCH (20:47)
[2019-04-23 21:00] VITALS: BP 131/87
--- NOTE | 2019-04-23 23:49 | NUR ---
Nursing Progress Note: Legal hold: 5250 Exp. 04/27 @ 7409 Client on involuntary status for DTS. Report received from GENA Egan with use of SBAR. Why are they here: The patient is a 33 year old female admitted on a 5150 hold for DTS. She was transported by EMS from [facility] after being evaluated by [facility] and a 5150 was written. She reportedly took 20 Klonopin tabs in a suicide attempt. While in there ER she AWOL'd from the ER. She was in physical restraints for over 24 hours at one point. When asked why she was in restraints she stated "because the doctor was a bitch" She also required increase observation while using the bathroom because she was engaging in self harm behaviors. She has an open area on her left hand from scratching. Assessment What has happened this shift: Patient was sleeping at change of shift. Patient was frustrated because of her limit of water pitchers. Dr Samaniego placed patient back on [place] this afternoon. Patient at nurses station for information and PRN medication often. Patient appears very needy wanting clarification about water, medication, seeing physician. Patient states she is very depressed and still suicidal but won't talk about the plan. Patient walking the halls and appears depressed. SI/HI: Sucidal ideation A/VH: Denies. Sleep: None during the day. ADL's: Independent Group attendance: yes, requests that handouts be a minimum of 22 point font. Were Meds taken: Medication compliant Any med S/E: Thirst Mental Status Exam Appearance: Pt. with thick glasses, adequately groomed and dressed for unit. Eye contact: Fairs Behavior: Cooperative, anxious Speech: Clear, normal volume, slightly pressured at times Mood: Depressed, anxious Affect: Constricted Thought process: Linear Thought Content: focused on managing water intake Cognition: Intact Insight: Fair Judgment: Fair Interventions PRN's used: Olazapine Therapeutic interventions: 1:1 assessment at bedside, provided therapeutic communication, encouraged to go to groups, water restriction as above, coping skills, medication administration/education/monitoring for compliance, monitor Q15 minutes for safety. Restraints/seclusion/emergency medication: None. Justification of Continued Inpatient Treatment: Pt. had a severe suicide attempt further medication adjustment to stabilize current crisis is needed, monitoring patient behaviors. Without adequate treatment for current situation, pt is at high risk for readmission if discharged at this time.
[2019-04-24] MEDS: LIPASE/PROTEASE/AMYLASE 4,200 unit CAPSULE.DR PO SCH ×3 (07:43→17:29)
[2019-04-24] MEDS: docusate sod 100mg capsule PO SCH ×2 (07:43→20:30)
[2019-04-24] MEDS: valacyclovir 500mg tablet PO SCH ×2 (07:44→20:31)
[2019-04-24] MEDS: propranolol 10mg tablet PO SCH (07:45)
[2019-04-24] MEDS: levoTHYROXINE 88mcg tablet PO SCH (07:45)
[2019-04-24] MEDS: clonazePAM 1mg tablet PO SCH (07:45)
[2019-04-24] MEDS: spironolactone 50 MG tablet PO SCH (07:46)
[2019-04-24] MEDS: duloxetine 30mg CAPSULE.DR PO SCH (07:49)
[2019-04-24] MEDS: OLANZAPINE 5 MG TABLET PO SCH ×2 (07:49→20:31)
[2019-04-24] MEDS: nicotine 21mg patch - 24 hr TD SCH (07:54)
[2019-04-24 08:00] VITALS: BP 124/72
[2019-04-24] MEDS: lamoTRIgine 25mg tablet PO SCH (08:01)
[2019-04-24] MEDS: NICOTINE POLACRILEX 2 MG LOZENGE BC PRN ×3 (08:39→19:28)
[2019-04-24] MEDS: magnesium hydroxide 30ml (MOM) UD suspension PO PRN (10:38)
[2019-04-24] MEDS: hydrOXYzine 25 MG tablet PO SCH (10:38)
[2019-04-24] MEDS: OLANZapine 5mg rapidly disint. tablet PO PRN (13:19)
[2019-04-24] MEDS ORDERED: clonazePAM 1mg tablet PO ONE (15:20)
--- NOTE | 2019-04-24 15:49 | NUR ---
Nursing Progress Note: Legal hold: 5250 Exp. 04/27 @ 4164 Client on involuntary status for DTS. Report received from GENA Quigley with use of SBAR. Why are they here: The patient is a 33 year old female admitted on a 5150 hold for DTS. She was transported by EMS from [facility] after being evaluated by [facility] and a 5150 was written. She reportedly took 20 Klonopin tabs in a suicide attempt. While in there ER she AWOL'd from the ER. She was in physical restraints for over 24 hours at one point. When asked why she was in restraints she stated "because the doctor was a bitch" She also required increase observation while using the bathroom because she was engaging in self harm behaviors. She has an open area on her left hand from scratching. Assessment What has happened this shift: Patient was sleeping at change of shift and up before breakfast. Patient is less depressed today and no requiring as much attention. Patient states she is feeling better today though patient states she is still depressed with SI but won't talk about the plan. Patient has not requested any pain medication as of this writing. Patient was awoken at 0200 this morning to have her Fentanyl patch checked because it requires a 12 hour check and was placed yesterday at 1400ish. Patient said it took her a long time to go back to sleep after awoken. Patient is tired but brighter today. SI/HI: Sucidal ideation A/VH: Denies. Sleep: None during the day. ADL's: Independent Group attendance: yes, Were Meds taken: Medication compliant Any med S/E: Thirst Mental Status Exam Appearance: Pt. with thick glasses, adequately groomed and dressed for unit. Eye contact: Fair Behavior: Cooperative, anxious Speech: Clear, normal volume, slightly pressured at times Mood: Depressed, anxious Affect: Constricted Thought process: Linear Thought Content: focused on managing water intake Cognition: Intact Insight: Fair Judgment: Fair Interventions PRN's used: Olazapine, Nicotine lozenges, MOM Therapeutic interventions: 1:1 assessment at bedside, provided therapeutic communication, encouraged to go to groups, water restriction as above, coping skills, medication administration/education/monitoring for compliance, monitor Q15 minutes for safety. Restraints/seclusion/emergency medication: None. Justification of Continued Inpatient Treatment: Pt. had a severe suicide attempt further medication adjustment to stabilize current crisis is needed, monitoring patient behaviors. Without adequate treatment for current situation, pt is at high risk for readmission if discharged at this time.
[2019-04-24 20:00] VITALS: BP 114/57
[2019-04-24] MEDS: lithium carbonate 450mg CR tablet PO SCH (20:28)
[2019-04-24] MEDS: lithium carbonate 300mg SR tablet (LithoBID) PO SCH (20:30)
[2019-04-24] MEDS: traZODone 50mg tablet PO SCH (20:30)
--- NOTE | 2019-04-24 22:09 | NUR ---
Nursing Progress Note: Legal hold: 5250 Exp. 04/27 @ 2560 Client on involuntary status for DTS. Report received from GENA Johnston with use of SBAR. Why are they here: The patient is a 33 year old female admitted on a 5150 hold for DTS. She was transported by EMS from [facility] after being evaluated by [facility] and a 5150 was written. She reportedly took 20 Klonopin tabs in a suicide attempt. While in there ER she AWOL'd from the ER. She was in physical restraints for over 24 hours at one point. When asked why she was in restraints she stated "because the doctor was a bitch" She also required increase observation while using the bathroom because she was engaging in self harm behaviors. She has an open area on her left hand from scratching. Assessment What has happened this shift: Patient was up and reading at shift change. Patient is less depressed today and not requiring as much attention. Patient states she is feeling better today though patient states she is still depressed with SI but won't talk about the plan. Patient is tired but brighter today and thinks her Meds are helping and feels ready to go in a few day. SI/HI: Sucidal ideation A/VH: Denies. Sleep: None during the day. ADL's: Independent Group attendance: yes, Were Meds taken: Medication compliant Any med S/E: Thirst Mental Status Exam Appearance: Pt. with thick glasses, adequately groomed and dressed for unit. Eye contact: Fair Behavior: Cooperative, anxious Speech: Clear, normal volume, slightly pressured at times Mood: Depressed, anxious Affect: Constricted Thought process: Linear Thought Content: focused on managing water intake Cognition: Intact Insight: Fair Judgment: Fair Interventions PRN's used: Olazapine, Nicotine lozenges, MOM Therapeutic interventions: 1:1 assessment at bedside, provided therapeutic communication, encouraged to go to groups, water restriction as above, coping skills, medication administration/education/monitoring for compliance, monitor Q15 minutes for safety. Restraints/seclusion/emergency medication: None. Justification of Continued Inpatient Treatment: Pt. had a severe suicide attempt further medication adjustment to stabilize current crisis is needed, monitoring patient behaviors. Without adequate treatment for current situation, pt is at high risk for readmission if discharged at this time.
[2019-04-25 07:40] VITALS: BP 131/82
[2019-04-25] MEDS: lamoTRIgine 25mg tablet PO SCH (07:46)
[2019-04-25] MEDS: nicotine 21mg patch - 24 hr TD SCH (07:46)
[2019-04-25] MEDS: LIPASE/PROTEASE/AMYLASE 4,200 unit CAPSULE.DR PO SCH ×3 (07:46→17:13)
[2019-04-25] MEDS: levoTHYROXINE 88mcg tablet PO SCH (07:47)
[2019-04-25] MEDS: OLANZAPINE 5 MG TABLET PO SCH ×2 (07:47→20:22)
[2019-04-25] MEDS: valacyclovir 500mg tablet PO SCH ×2 (07:48→20:21)
[2019-04-25] MEDS: duloxetine 30mg CAPSULE.DR PO SCH (07:48)
[2019-04-25] MEDS: spironolactone 50 MG tablet PO SCH (07:48)
[2019-04-25] MEDS: clonazePAM 1mg tablet PO SCH ×2 (07:48→12:32)
[2019-04-25] MEDS: docusate sod 100mg capsule PO SCH ×2 (07:49→20:19)
[2019-04-25] MEDS ORDERED: propranolol 10mg tablet PO SCH (08:00)
[2019-04-25] MEDS: NICOTINE POLACRILEX 2 MG LOZENGE BC PRN ×3 (08:31→18:54)
[2019-04-25] MEDS: OLANZapine 5mg rapidly disint. tablet PO PRN (09:57)
[2019-04-25] MEDS: hydrOXYzine 25 MG tablet PO SCH ×2 (09:57→15:12)
[2019-04-25 13:38] LABS: CLARITY,URINE CLOUDY (Clear); COLOR,URINE STRAW (Yellow); GLUCOSE, URINE NEGATIVE (Neg); KETONES,URINE NEGATIVE (Neg); LEUKOCYTE ESTERASE ,URINE TRACE (Neg); NITRITES, URINE NEGATIVE (Neg); OCCULT BLOOD,URINE NEGATIVE (Neg); PH,URINE 6.5 (4.8-8.0); PROTEIN,URINE NEGATIVE (Neg); UROBILINOGEN,URINE 0.2 E.U/dL (0.2-1.0)
[2019-04-25 13:43] LABS: SQUAMOUS EPITHELIAL CELL,UR MANY /LPF (FEW); UA COLLECTION TYPE CLN CATCH MIDSTREAM
[2019-04-25 13:44] LABS: BACTERIA,URINE 2+ /HPF (Neg); RBC,URINE 0-2 /HPF (0-2); WBC,URINE 0-4 /HPF (0-4)
[2019-04-25] MEDS: mag hydrox/Alum hydrox/simeth 30ml oral suspension PO PRN (15:53)
--- NOTE | 2019-04-25 16:24 | NUR ---
Nursing Progress Note: [place] Legal hold: 5250 Exp. 04/27 @ 0 Client on involuntary status for DTS. Report received from GENA Oliveros with use of SBAR. Why are they here: The patient is a 33 year old female admitted on a 5150 hold for DTS. She was transported by EMS from [facility] after being evaluated by [facility] and a 5150 was written. She reportedly took 20 Klonopin tabs in a suicide attempt. While in there ER she AWOL'd from the ER. She was in physical restraints for over 24 hours at one point. When asked why she was in restraints she stated "because the doctor was a bitch" She also required increase observation while using the bathroom because she was engaging in self harm behaviors. She has an open area on her left hand from scratching. Assessment What has happened this shift: Patient was up and socializing at shift change. Pt has a bright demeanor and is pleasant to talk to. Patient reports she is felling better but continues to have lingering depression sx which she hopes will be resolved once she stops Propranolol completely. RN advised her that she has titrated down to QD from BID. Patient is tired but brighter today and thinks her Meds are helping and feels ready to D/C in a few days. RN assisted pt with fixing glasses. She reports anxiety after breakfast and breathing exercises were performed and Zyprexa zydis was requested. She also requested Nicotine milo after Nicotine patch was placed. RN encouraged smoking cessation and discussed advantages of doing so. Pt excited/anxious to quit. Pt reports trouble urinating and reports that she does not experience freq, but does have burning and trouble initiating. Dr Dow was consulted and order given for UA. No other concerns voiced at this time. SI/HI: SI, no plan/intent voiced A/VH: Denies. Sleep: 7.0 hrs NOC ADL's: Independent Group attendance: yes Were Meds taken: Medication compliant Any med S/E: Thirst Mental Status Exam Appearance: Pt. with thick glasses, adequately groomed and dressed for unit. Eye contact: Fair Behavior: Cooperative, anxious Speech: Clear, normal volume, slightly pressured at times Mood: Depressed, anxious Affect: Constricted Thought process: Linear Thought Content: focused on fixing glasses Cognition: Intact Insight: Fair Judgment: Fair Interventions PRN's used: Zyprexa Zydis X1, Nicotine lozenges X2, Maalox X1 Therapeutic interventions: 1:1 assessment at bedside, provided therapeutic communication, encouraged to go to groups, water restriction as above, coping skills, medication administration/education/monitoring for compliance, monitor Q15 minutes for safety. Restraints/seclusion/emergency medication: None. Justification of Continued Inpatient Treatment: Pt. had a severe suicide attempt further medication adjustment to stabilize current crisis is needed, monitoring patient behaviors. Without adequate treatment for current situation, pt is at high risk for readmission if discharged at this time.
[2019-04-25] MEDS: phenazopyridine 100mg tablet PO SCH (19:22)
[2019-04-25 19:29] VITALS: BP 117/76
[2019-04-25] MEDS: lithium carbonate 300mg SR tablet (LithoBID) PO SCH (20:19)
[2019-04-25] MEDS: lithium carbonate 450mg CR tablet PO SCH (20:20)
[2019-04-25] MEDS: traZODone 50mg tablet PO SCH (20:21)
[2019-04-25] MEDS: olanzapine 10mg tablet PO SCH (20:21)
[2019-04-25] MEDS ORDERED: CLON1TAB12 PO (20:38)
[2019-04-25] MEDS ORDERED: NICO-668 BC (20:38)
[2019-04-25] MEDS ORDERED: OLAN5TAB29 PO (20:38)
[2019-04-25] MEDS ORDERED: DULO60CA65 PO (20:38)
[2019-04-25] MEDS ORDERED: VALA500T37 PO (20:38)
[2019-04-25] MEDS ORDERED: TRAZ-251 PO (20:38)
[2019-04-25] MEDS ORDERED: COL100C PO (20:38)
[2019-04-25] MEDS ORDERED: THY60T PO (20:38)
[2019-04-25] MEDS ORDERED: LEVO50TA8 PO (20:38)
[2019-04-25] MEDS ORDERED: LIPA1CAP28 PO (20:38)
[2019-04-25] MEDS ORDERED: LIT300C PO (20:38)
[2019-04-25] MEDS ORDERED: AMOX-580 PO (20:38)
[2019-04-25] MEDS ORDERED: NICO-631 TD (20:38)
[2019-04-25] MEDS ORDERED: LAMO25TA5 PO (20:38)
[2019-04-25] MEDS ORDERED: PHEN-786 PO (20:38)
[2019-04-25] MEDS ORDERED: SPIR50TA5 PO (20:38)
[2019-04-25] MEDS ORDERED: HYDR-3686 PO (20:38)
[2019-04-25] MEDS ORDERED: FENT-16 TOP (20:38)
[2019-04-25] MEDS ORDERED: OLAN10TA19 PO (20:38)
--- NOTE | 2019-04-25 21:48 | NUR ---
Nursing Progress Note: [place] Legal hold: 5250 Exp. 04/27 @ 7 Client on involuntary status for DTS. Report received from GENA Gallo with use of SBAR. Why are they here: The patient is a 33 year old female admitted on a 5150 hold for DTS. She was transported by EMS from [facility] after being evaluated by [facility] and a 5150 was written. She reportedly took 20 Klonopin tabs in a suicide attempt. While in there ER she AWOL'd from the ER. She was in physical restraints for over 24 hours at one point. When asked why she was in restraints she stated "because the doctor was a bitch" She also required increase observation while using the bathroom because she was engaging in self harm behaviors. She has an open area on her left hand from scratching. Assessment What has happened this shift: Pt was seen by hospitalist at change of shift and pyridium was started as pt is experiencing some discomfort, and sometimes not complete emptying when she urinates. Possible uti, but ua was unremarkable per hospitalist. Pt reports she is looking forward to discharge tomorrow and hopes time will be earlier in the day. She states she would like to shave her armpits w/her morning shower tomorrow. Pt also inquires if she will be able to get a fentanyl patch placed before going. pt would like her meds to be placed in a pill reminder box with the times before she leaves because she is concerened she wont be able to remember to take her pills at the correct times. Pt reports some depression but states "Its not so bad now." , denies s/i, states she attended group today and art group was her favorite. Pt states she feels her meds are really working well for her. Pt reports sleep is ok but she had a bad dream last night. SI/HI: denies s/i, denies h/i A/VH: Denies. Sleep: well despite having a 'bad dream' the night before. ADL's: Independent Group attendance: yes Were Meds taken: Medication compliant Any med S/E: none reported/observed Mental Status Exam Appearance: Pt. with thick glasses, adequately groomed and dressed for unit. Eye contact: good Behavior: Cooperative, anxious Speech: Clear, normal volume, slightly pressured at times Mood: Depressed, anxious Affect: Constricted Thought process: Linear Thought Content: focused on getting prepared for discharge tomorrow, and would like help going over times medications or due preferring a pill reminder be set up for her. Cognition: Intact Insight: Fair Judgment: Fair Interventions PRN's used: Nicotine lozenge Therapeutic interventions: 1:1 assessment at bedside, provided therapeutic communication, encouraged to go to groups, water restriction as above, coping skills, medication administration/education/monitoring for compliance, monitor Q15 minutes for safety. Restraints/seclusion/emergency medication: None. Justification of Continued Inpatient Treatment: Pt. had a severe suicide attempt further medication adjustment to stabilize current crisis is needed, monitoring patient behaviors. Without adequate treatment for current situation, pt is at high risk for readmission if discharged at this time.
[2019-04-26 07:43] VITALS: BP 122/82
[2019-04-26] MEDS: clonazePAM 1mg tablet PO SCH ×2 (07:43→12:19)
[2019-04-26] MEDS: levoTHYROXINE 88mcg tablet PO SCH (07:43)
[2019-04-26] MEDS: nicotine 21mg patch - 24 hr TD SCH (07:43)
[2019-04-26] MEDS: duloxetine 30mg CAPSULE.DR PO SCH (07:43)
[2019-04-26] MEDS: olanzapine 10mg tablet PO SCH (07:43)
[2019-04-26] MEDS: phenazopyridine 100mg tablet PO SCH ×2 (07:43→12:19)
[2019-04-26] MEDS: LIPASE/PROTEASE/AMYLASE 4,200 unit CAPSULE.DR PO SCH ×2 (07:43→12:19)
[2019-04-26] MEDS: spironolactone 50 MG tablet PO SCH (07:44)
[2019-04-26] MEDS: valacyclovir 500mg tablet PO SCH (07:44)
[2019-04-26] MEDS: docusate sod 100mg capsule PO SCH (07:44)
[2019-04-26] MEDS: lamoTRIgine 25mg tablet PO SCH (07:44)
[2019-04-26] MEDS: OLANZAPINE 5 MG TABLET PO SCH (07:44)
[2019-04-26] MEDS: NICOTINE POLACRILEX 2 MG LOZENGE BC PRN ×2 (07:48→12:23)
--- NOTE | 2019-04-26 07:56 | NUR ---
DISCHARGE PLANNING: Patient is suppose to be picked up around noon today, 04/26/2019 but this has not been confirmed at this time. As there was no confirmation message from the transportation department this morning, this entry writer phoned and left message for Dr. Chavez. Transportation is being set up [facility], parts counter sales person is Lead clinician Dr. Tani Chavez At [phone]. Pt is getting her medication from [facility] and transportation will be returning her home to her mother's residence. ALEXANDRIA Smith Addendum: 04/26/19 at 0918 by Lupe Martin Received confirmation that pt's transportation will be her about noon. ALEXANDRIA Smith
[2019-04-26] MEDS: hydrOXYzine 25 MG tablet PO SCH (09:15)
[2019-04-26] MEDS: OLANZapine 5mg rapidly disint. tablet PO PRN (11:58)
[2019-04-26] MEDS: fentaNYL 25MCG/hour patch.TD72 TD SCH (12:05)
--- NOTE | 2019-04-26 13:31 | NUR ---
Discharge Note: Nursing Progress Note: Legal hold: 5250 Exp. 04/27 @ 2942 Client on involuntary status for DTS. Report received from SOREN Santacruz with use of SBAR. Why are they here: The patient is a 33 year old female admitted on a 5150 hold for DTS. She was transported by EMS from [facility] after being evaluated by [facility] and a 5150 was written. She reportedly took 20 Klonopin tabs in a suicide attempt. While in there ER she AWOL'd from the ER. She was in physical restraints for over 24 hours at one point. When asked why she was in restraints she stated "because the doctor was a bitch" She also required increase observation while using the bathroom because she was engaging in self harm behaviors. Assessment What has happened this shift: Pt denied depression, SI/HI/VH. Pt expressed some anxiety over discharge today. Pt denied AH this morning though stated she did have some yesterday,a male voice that makes derogatory statements. Pt requested that her Fentanyl patch which was due today at 1425 be administered before her discharge today, T.O. was obtained from Dr Dow and her Fentanyl patch was changed around 1200. Pt's meds were called in to [facility]'s pharmacy, signed paper scripts for Fentanyl patch and Klonopin were sent with the pt. A sack lunch was provided for her. Pt was discharged at 1235, PCT ambulated pt off the unit and down to oil truck driver. Pt expressed understanding of discharge instructions including Rx's and follow up care. Technology Sales Representative to transport pt to sister's house in [place]. SI/HI: Pt denied A/VH: Pt denied VH, denied AH today Sleep: Pt reported sleeping well, slept 8.25 hours per noc shift report. ADL's: Independent Group attendance: yes Were Meds taken: yes Any med S/E: none reported or observed. Mental Status Exam Appearance: Clean, dressed in street clothes Eye contact: good Behavior: Pleasant, cooperative Speech: Clear, audible Mood: Anxious Affect: Congruent Thought process: Linear Thought Content: Focused on discharge. Cognition: A/O X 4 Insight: Fair Judgment: Fair Interventions PRN's used: Nicotine lozenges, Zydis 5 mg Therapeutic interventions: 1:1 assessment, therapeutic conversation, discharge planning and teaching, medication administration/monitoring/education, Q 15 min checks. Restraints/seclusion/emergency medication: None Justification of Continued Inpatient Treatment: N/A: pt discharged today at 1235.
== END 2019-04-26 12:36 | disposition home or self-care (01) | DRG 885 ==
LOC: ADULT MH 21:14
PROVIDERS: ADMIT Psychiatry & Neurology Psychiatry; ATTEND Psychiatry & Neurology Psychiatry
DX: F31.5 Bipolar disorder, current episode depressed, severe, with psychotic features (principal); E03.9 Hypothyroidism, unspecified; G89.4 Chronic pain syndrome; F12.90 Cannabis use, unspecified, uncomplicated; J45.909 Unspecified asthma, uncomplicated; G43.909 Migraine, unspecified, not intractable, without status migrainosus; H54.8 Legal blindness, as defined in USA; F41.9 Anxiety disorder, unspecified; K76.0 Fatty (change of) liver, not elsewhere classified; R35.0 Frequency of micturition; F17.219 Nicotine dependence, cigarettes, with unspecified nicotine-induced disorders; T42.4X2A Poisoning by benzodiazepines, intentional self-harm, initial encounter; Z79.899 Other long term (current) drug therapy; Z79.890 Hormone replacement therapy; Z88.1 Allergy status to other antibiotic agents; Z88.6 Allergy status to analgesic agent; Z88.8 Allergy status to other drugs, medicaments and biological substances; Z81.1 Family history of alcohol abuse and dependence; Z81.8 Family history of other mental and behavioral disorders; Y92.89 Other specified places as the place of occurrence of the external cause
CPT/HCPCS: 36415; 80061; 81001; 82150; 82948; 83036; 83690; 84439; 84443; 84480; 85025; 87081; Z7610

== ENCOUNTER 2019-08-08 12:55 | Inpatient (IN) | payer MEDICARE, BC ==
[~2019-08-08] VITALS: Ht 154.9 cm; Wt 88.8 kg
[~2019-08-08 12:55] MED LIST: AMOX-580 PO; CLON1TAB12 PO; DULO60CA65 PO; FENT-16 TOP; HYDR-3686 PO; LAMO25TA5 PO; LEVO50TA8 PO; LIPA1CAP28 PO; LIT300C PO; NICO-668 BC; OLAN10TA19 PO; OLAN5TAB29 PO; PHEN-786 PO; SPIR50TA5 PO; THY60T PO; TRAZ-251 PO; VALA500T37 PO
[2019-08-08] MEDS ORDERED: pneumococcal 23-VAL P-sac vacc 25 mcg/0.5ml vial IMVAC ONE (19:50)
[2019-08-08] MEDS ORDERED: FLU VACC QS2019-20 36MOS UP/PF 60 MCG/0.5 ML SYRINGE IMVAC ONE (19:50)
[2019-08-08 20:00] VITALS: BP 143/91
--- NOTE | 2019-08-08 20:04 | NUR ---
Pt admitted on [facility] on 08/08/19 at 1885. She arrived on the unit disheveled in a hospital gown. She came from [facility] in [place] via ambulance. She was placed on a 5150 for DTS with attempt to OD on medications (#17 Klonopin, #3 Oxycodon, & #1 Flexeril). Pt alerted crisis line by saying, "See, I took 17 Klonopin!" Pt has a long history of PHF admissions. Hx Depression, Bipolar, Schizoaffective. 2RN skin check was completed. Pt reports feeling "confused" and easily tearful although she is cognizant about what day, time, place and event is. She showered independently and requested that this RN get her "the good lotion that I used last time I was here." During 1:1 assessment at bedside pt was calm and cooperative. After 20mins of interaction pt started clenching her fists and yelling that she needs her Fentanyl patch and that this RN needed to "call the doctor now!" and "You all are just going to make me suffer." Pt was not easily redirected as she often talks over this instructional writer. Pt has chronic pain (h/o back surgery) and reports she no longer takes Suboxone d/t SE's. Pt reports that she is estranged from her sister which causes her grief. She also reports living at home with family which is "tense." Denies any SE's from medications, none were objectively observed.
[2019-08-08] MEDS ORDERED: CYCL5TAB PO (20:56)
[2019-08-08] MEDS ORDERED: DOXY100C43 PO (20:56)
[2019-08-08] MEDS ORDERED: LAMO100T PO (20:56)
[2019-08-08] MEDS ORDERED: GABA600T13 PO (20:56)
[2019-08-08] MEDS ORDERED: loperamide 2mg capsule PO PRN (21:00)
[2019-08-08] MEDS: traZODone 50mg tablet PO PRN (22:27)
[2019-08-09] MEDS: LORazepam 1 MG tablet PO PRN ×4 (01:41→22:14)
[2019-08-09] MEDS: acetaminophen 325mg tablet PO PRN ×2 (04:35→08:38)
[2019-08-09] MEDS: hydrOXYzine 25 MG tablet PO PRN ×2 (04:35→22:59)
--- NOTE | 2019-08-09 04:36 | NUR ---
Nursing Note: Pt. tearful, anxious, and agitated; c/o chronic back pain, PRN Tylenol and Atrax administered. Pt. sitting in bed at this time, will continue to monitor.
[2019-08-09] MEDS: levoTHYROXINE 25mcg tablet PO SCH (07:27)
[2019-08-09] MEDS: thyroid, pork 30mg tablet PO SCH (08:00)
[2019-08-09] MEDS: DOXYCYCLINE 100MG CAPSULE PO SCH ×2 (08:39→21:09)
[2019-08-09] MEDS: valacyclovir 500mg tablet PO SCH ×2 (08:39→20:00)
[2019-08-09] MEDS: duloxetine 30mg CAPSULE.DR PO SCH ×2 (08:40→12:46)
[2019-08-09] MEDS: lamoTRIgine 100mg tablet PO SCH (08:40)
[2019-08-09] MEDS: fentaNYL 25MCG/hour patch.TD72 TD SCH (09:22)
[2019-08-09] MEDS ORDERED: OLANZapine 5mg rapidly disint. tablet PO ONE (12:55)
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
--- NOTE | 2019-08-09 15:19 | NUR ---
Nursing Progress Note Legal hold: 5150 Client on involuntary status for DTS Report received from GENA Covington with use of SBAR Why are they here: Patient OD on Klonopin, OXY and Flexeril. Assessment What has happened this shift: The patient has been tearful and demanding all shift. Labile and splitting staff. States that people are "watching her" and using "listening devices." She states she is hearing voices. Intrusive, asking any doctor at anytime to solve her problems. Wanting instant gratification and has no coping skills. Frantic at times. Argumentative with staff. Attention seeking. S/I, H/I: positive SI, wants to cut with a broken mirror or glass. A/VH: AH Sleep: None ADL's: Self Group attendance: Yes Were meds taken: Yes Any med S/E: None Mental Status Exam Appearance: disheveled Eye contact: direct Behavior: Labile Speech: pressured Mood: Depressed Affect: Agitated Thought process: Thought Content: Cognition:alert Insight:poor Judgment:poor Interventions PRN's used: zyprexa Therapeutic interventions: establish rapport, active listening, maintain therapeutic environment, q15m safety checks Restraints/seclusion/emergency medication: None Justification of Continued Inpatient Treatment: Requires interruption of current crisis, medication adjustments, and a safe and supportive environment to prevent readmission.
[2019-08-09] MEDS: NICOTINE POLACRILEX 2 MG LOZENGE BC PRN ×2 (19:08→22:14)
[2019-08-09 20:00] VITALS: BP 128/79
[2019-08-09] MEDS ORDERED: lithium carbonate 300mg SR tablet (LithoBID) PO SCH ×2 (20:50→20:51)
[2019-08-09] MEDS: OLANZapine 5mg rapidly disint. tablet PO SCH (21:08)
[2019-08-09] MEDS: cyclobenzaprine 10mg tablet PO SCH (21:10)
[2019-08-09] MEDS: gabapentin 300mg capsule PO SCH (21:11)
[2019-08-09] MEDS: aspirin/acetaminophen/caffeine tablet PO PRN (21:26)
[2019-08-09] MEDS: lithium carbonate 150mg capsule PO SCH (21:27)
[2019-08-09] MEDS: traZODone 50mg tablet PO PRN (22:59)
[2019-08-10] MEDS ORDERED: valacyclovir 500mg tablet PO SCH
--- NOTE | 2019-08-10 00:39 | NUR ---
Nursing Progress Note Legal hold: 5150 Client on involuntary status for DTS Report received from GENA Egan with use of SBAR Why are they here: Patient OD on Klonopin, OXY and Flexeril. Assessment What has happened this shift: Pt was observed walking down the halls during shift change. This freelance writer introduce self to pt and established rapport. Cooperative during physical assessment but is questioning almost every medication given. She states that she had talked to the doctor and they agreed that she was going to get 10mg of Zyprexa. Verified notes and it only shows 5mg. Also wants to know why there is no order for lithium. This freelance writer contacted dr. Humphreys and he order labs for it and also put in an order for 300mg [place] TID. Pt is not happy with care and request to page . She wants to be the first person to be seen by tomorrow. She states that "as long as my medications are not right, I am never going to feel better". Pt becomes agitated and teary. Requests something for sleep and Trazodone and Atarax is given but is still up on and off for most of the night. Pt is very intrusive and attention seeking. S/I, H/I: positive SI, wants to cut with a broken mirror or glass. A/VH: AH Sleep: See sleep assessment ADL's: Self Group attendance: None during java application engineer Were meds taken: Yes Any med S/E: None Mental Status Exam Appearance: disheveled, wearing dirty scrubs Eye contact: direct Behavior: Labile Speech: pressured Mood: Depressed, teary Affect: Agitated, paranoid Thought process: Disorganized Thought Content: Focused on medications not being correct Cognition:alert Insight:poor Judgment:poor Interventions PRN's used: Trazodone, Nicotine lozenge, Atarax, Exedrin, Ativan Therapeutic interventions: establish rapport, active listening, maintain therapeutic environment, q15m safety checks, medication administration Restraints/seclusion/emergency medication: None Justification of Continued Inpatient Treatment: Requires interruption of current crisis, medication adjustments, and a safe and supportive environment to prevent readmission.
[2019-08-10] MEDS: LORazepam 1 MG tablet PO PRN ×3 (06:25→20:39)
[2019-08-10] MEDS: levoTHYROXINE 25mcg tablet PO SCH (07:23)
[2019-08-10] MEDS: thyroid, pork 30mg tablet PO SCH (07:31)
[2019-08-10] MEDS: lamoTRIgine 100mg tablet PO SCH (07:31)
[2019-08-10] MEDS: gabapentin 300mg capsule PO SCH ×3 (07:31→20:40)
[2019-08-10] MEDS: DOXYCYCLINE 100MG CAPSULE PO SCH ×2 (07:31→20:39)
[2019-08-10] MEDS: valacyclovir 500mg tablet PO SCH ×3 (07:31→20:39)
[2019-08-10] MEDS: lithium carbonate 150mg capsule PO SCH ×3 (07:32→20:41)
[2019-08-10] MEDS: duloxetine 30mg CAPSULE.DR PO SCH ×2 (07:32→13:09)
[2019-08-10] MEDS: OLANZapine 5mg rapidly disint. tablet PO SCH (07:32)
[2019-08-10 07:42] VITALS: BP 140/96
[2019-08-10] MEDS: nicotine 21mg patch - 24 hr TD SCH (08:04)
[2019-08-10 08:09] LABS: HEMOGLOBIN A1C 5.1 % (4.5-6.2)
[2019-08-10 08:12] LABS: ALANINE AMINOTRANSFERASE 49 U/L (12-78); ALBUMIN 4.2 G/DL (3.4-5.0); ALBUMIN/GLOBULIN RATIO 1.1 (1.1-1.5); ALKALINE PHOSPHATASE 81 IU/L (46-116); ANION GAP 13 (8-16); ASPARTATE AMINO TRANSFERASE 40 U/L (10-37); BILIRUBIN,TOTAL 0.3 MG/DL (0.1-1.0); BLOOD UREA NITROGEN 11 MG/DL (7-18); BUN/CREATININE RATIO 10.7 (6.6-38.0); CALCIUM 9.1 MG/DL (8.5-10.1); CHLORIDE 104 MMOL/L (99-107); CHOL/HDL RATIO 3.8 (0.00-4.99); CHOLESTEROL 177 MG/DL (0-200); CREATININE 1.03 MG/DL (0.40-0.90); GLUCOSE 102 MG/DL (70-104); HDL CHOLESTEROL 47 MG/DL (35-60); LDL CHOLESTEROL 119 MG/DL (50-100); POTASSIUM 3.8 MMOL/L (3.5-5.1); SODIUM 140 MMOL/L (135-145); TOTAL CARBON DIOXIDE 23.5 MMOL/L (24-32); TRIGLYCERIDES 148 MG/DL (20-135); eGFR 61 ML/MIN
--- NOTE | 2019-08-10 08:33 | NUR ---
RN received message from laboratory regarding pt.'s positive MRSA nare swab. RN informed pt.'s RN Lester to inform pt. of proper hand washing technique.
--- NOTE | 2019-08-10 13:25 | NUR ---
Attempted to reach Solange's sister, Minerva (ph# [phone]) as she called earlier and spoke to GENA Batista, who suggested fiction and nonfiction prose writer call her. WASHINGTON Zamudio
--- NOTE | 2019-08-10 14:01 | NUR ---
Nursing Progress Note Legal hold: 5150 Client on involuntary status for DTS Report received from GENA Quigley with use of SBAR Why are they here: The patient stopped her medications, decompensated and became suicidal, and attempted suicide by taking Klonopin, OXY and Flexeril. Assessment What has happened this shift: The patient was asleep at change of shift. She was up to breakfast with her peers. Slightly calmer demeanor today. Still questioning meds. States she is receiving messages from the [employer] and a code that only she can understand which will save the world. When she reported she was "very anxious" and asked for an Ativan she was asked what other coping skills she has and was able to say journaling and deep breathing. She was asked to go with the group out onto the patio and practice deep breathing and get some sunshine which she did. It was pointed out to the patient that she does in fact have good coping skills and that she is less anxious when interacting with her peers and having distractions. She was able to realize this was true. Reassurance provided. S/I, H/I: passive A/VH: AH Sleep: None ADL's: Self Group attendance: yes Were meds taken: Yes Any med S/E: None Mental Status Exam Appearance: neat, wearing heavy sweater Eye contact: direct Behavior: Labile Speech: pressured Mood: Depressed, teary Affect: Agitated, paranoid Thought process: Delusional Thought Content: Feelings of anxiety Cognition:alert Insight:poor Judgment:poor Interventions PRN's used: Ativan Therapeutic interventions: establish rapport, active listening, maintain therapeutic environment, q15m safety checks, medication administration Restraints/seclusion/emergency medication: None Justification of Continued Inpatient Treatment: Requires interruption of current crisis, medication adjustments, and a safe and supportive environment to prevent readmission.
[2019-08-10] MEDS: NICOTINE POLACRILEX 2 MG LOZENGE BC PRN ×2 (15:06→17:38)
[2019-08-10] MEDS: hydrOXYzine 25 MG tablet PO PRN (17:38)
[2019-08-10 19:08] VITALS: BP 126/80
[2019-08-10] MEDS: olanzapine 10mg tablet PO SCH (20:38)
[2019-08-10] MEDS: traZODone 50mg tablet PO PRN (20:38)
[2019-08-10] MEDS: cyclobenzaprine 10mg tablet PO SCH (20:39)
--- NOTE | 2019-08-11 01:21 | NUR ---
Nursing Progress Note Legal hold: 5150 Client on involuntary status for DTS Report received from GENA Egan with use of SBAR Why are they here: The patient stopped her medications, decompensated and became suicidal, and attempted suicide by taking Klonopin, OXY and Flexeril. Assessment What has happened this shift: Pt was seen sitting in the halls during shift change. Pt was cooperative during physical assessment and did not question his medications. Paranoid, wants to be changed or have her roommate changed because she states that she doesn't feel safe with her. Kept getting into arguments with her. Provided reassurance and redirection. Rates anxiety at 10. Still positive for A/H. Sates that she hears voices from a space craft sending her codes to stop the destruction of the earth. Delusion of grandiose. Believes that she was chosen because she is special because she is part of the [employer]. She is also hearing voices to harm self and states that at home she bangs her head against the wall and that has been her plan for suicide. Pt refused to remove nicotine patch. Patient was still intrusive. Patient was able to remained in her room calmed for most of the night. S/I, H/I: passive A/VH: AH Sleep: See sleep assessment ADL's: Self Group attendance: None during shift change Were meds taken: Yes Any med S/E: None Mental Status Exam Appearance: neat, wearing heavy sweater Eye contact: direct Behavior: Labile Speech: pressured Mood: Depressed, teary Affect: Agitated, paranoid Thought process: Delusional Thought Content: Feelings of anxiety, medication, not feeling safe with roommate Cognition:alert Insight:poor Judgment:poor Interventions PRN's used: Ativan. trazodone Therapeutic interventions: establish rapport, active listening, maintain therapeutic environment, q15m safety checks, medication administration Restraints/seclusion/emergency medication: None Justification of Continued Inpatient Treatment: Requires interruption of current crisis, medication adjustments, and a safe and supportive environment to prevent readmission.
[2019-08-11] MEDS: NICOTINE POLACRILEX 2 MG LOZENGE BC PRN ×5 (05:48→22:03)
[2019-08-11] MEDS: thyroid, pork 30mg tablet PO SCH (07:18)
[2019-08-11] MEDS: levoTHYROXINE 25mcg tablet PO SCH (07:18)
[2019-08-11 08:00] VITALS: BP 133/91
[2019-08-11] MEDS: DOXYCYCLINE 100MG CAPSULE PO SCH ×2 (08:26→20:09)
[2019-08-11] MEDS: lithium carbonate 150mg capsule PO SCH ×3 (08:26→20:09)
[2019-08-11] MEDS: duloxetine 30mg CAPSULE.DR PO SCH ×2 (08:26→12:22)
[2019-08-11] MEDS: gabapentin 300mg capsule PO SCH ×3 (08:26→20:10)
[2019-08-11] MEDS: valacyclovir 500mg tablet PO SCH ×3 (08:26→20:09)
[2019-08-11] MEDS: OLANZapine 2.5MG tablet PO SCH (08:27)
[2019-08-11] MEDS: lamoTRIgine 100mg tablet PO SCH (08:27)
[2019-08-11] MEDS: nicotine 21mg patch - 24 hr TD SCH (08:28)
[2019-08-11] MEDS: LORazepam 1 MG tablet PO PRN ×2 (10:32→20:10)
[2019-08-11] MEDS: hydrOXYzine 25 MG tablet PO PRN ×2 (12:14→22:04)
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
[2019-08-11] MEDS ORDERED: OLANZapine 2.5MG tablet PO ONE (15:50)
[2019-08-11 20:00] VITALS: BP 143/87
[2019-08-11] MEDS: traZODone 50mg tablet PO PRN (20:09)
[2019-08-11] MEDS: olanzapine 10mg tablet PO SCH (20:10)
[2019-08-11] MEDS: cyclobenzaprine 10mg tablet PO SCH (20:10)
--- NOTE | 2019-08-12 01:48 | NUR ---
Nursing Progress Note Legal hold: 5150 Client on involuntary status for DTS Report received from GENA Egan with use of SBAR Why are they here: The patient stopped her medications, decompensated and became suicidal, and attempted suicide by taking Klonopin, OXY and Flexeril. Assessment What has happened this shift: Pt is moved to new room 327B. PT appears happy with this. "This is going to be better I think. I was just having trouble with my old roommate and I could never sleep." Pt is seen socializing on the unit and then returns to her room. She is pleasant and cooperative with 1:1 assessment and medication compliant. She requests ativan and trazodone PRN because she states she is feeling anxious and knows she will need the medication to fall asleep. She does not make any suicidal statements this shift and remains in a fairly positive mood. Pt received influenza and pneumococcal vaccines this evening. Pt tolerated well. S/I, H/I: does not endorse SI this shift A/VH: does not endorse AH/VH this shift Sleep: See sleep assessment ADL's: Self Group attendance: None during shift change Were meds taken: Yes Any med S/E: None Mental Status Exam Appearance: neat, wearing green scrubs Eye contact: direct Behavior: isolates in her room Speech: WNL Mood: Depressed Affect: bland Thought process: linear this shift Thought Content: anxiety, wanting to get sleep Cognition:alert Insight:poor Judgment:poor Interventions PRN's used: Ativan. trazodone Therapeutic interventions: establish rapport, active listening, maintain therapeutic environment, q15m safety checks, medication administration Restraints/seclusion/emergency medication: None Justification of Continued Inpatient Treatment: Requires interruption of current crisis, medication adjustments, and a safe and supportive environment to prevent readmission.
[2019-08-12] MEDS: NICOTINE POLACRILEX 2 MG LOZENGE BC PRN ×3 (04:39→21:29)
[2019-08-12] MEDS: thyroid, pork 30mg tablet PO SCH (07:09)
[2019-08-12] MEDS: levoTHYROXINE 25mcg tablet PO SCH (07:09)
[2019-08-12 08:00] VITALS: BP 124/84
[2019-08-12] MEDS: nicotine 21mg patch - 24 hr TD SCH (08:15)
[2019-08-12] MEDS: DOXYCYCLINE 100MG CAPSULE PO SCH ×2 (08:15→20:59)
[2019-08-12] MEDS: aspirin/acetaminophen/caffeine tablet PO PRN (08:16)
[2019-08-12] MEDS: valacyclovir 500mg tablet PO SCH ×3 (08:16→21:01)
[2019-08-12] MEDS: lithium carbonate 150mg capsule PO SCH ×3 (08:16→21:00)
[2019-08-12] MEDS: lamoTRIgine 100mg tablet PO SCH (08:17)
[2019-08-12] MEDS: duloxetine 30mg CAPSULE.DR PO SCH ×2 (08:17→13:12)
[2019-08-12] MEDS: OLANZapine 2.5MG tablet PO SCH (08:17)
[2019-08-12] MEDS: gabapentin 300mg capsule PO SCH ×3 (08:20→20:59)
--- NOTE | 2019-08-12 09:06 | NUR ---
Initial: Pt admit w/ depression and SI placed on 5250. PO 75-100% avg regular diet meeting needs. LBM 08/11. TG 148 may benefit from anti-hyperlipidemic per MD approval. Will continue to monitor. Rec: 1. continue regular diet 2. anti-hyperlipidemic per MD approval 3. wt per rx Addendum: 08/12/19 at [address] Amended: Links added.
[2019-08-12] MEDS: fentaNYL 25MCG/hour patch.TD72 TD SCH (09:51)
[2019-08-12] MEDS: OLANZAPINE 5 MG TABLET PO SCH ×2 (13:12→21:01)
[2019-08-12] MEDS: acetaminophen 325mg tablet PO PRN ×2 (13:21→18:46)
--- NOTE | 2019-08-12 15:37 | NUR ---
Nursing Progress Note Legal hold: 5250 Client on involuntary status for DTS Report received from GENA Quigley with use of SBAR Why are they here: The patient stopped her medications, decompensated and became suicidal, and attempted suicide by taking Klonopin, OXY and Flexeril. Assessment What has happened this shift: The patient was awake at change of shift. She was up to breakfast interacting with her peers and being helpful and supportive of others. Doing better with new roommate. Calm and able to sleep. Mid morning got a call from her sister and became shaken up because reportedly the sister told her she was going to report her for not taking care of her guide dog. (the dog is being cared for by her sister while she is hospitalized.) She immediately asked for an Ativan and was shaking and sobbing. She was able to talk thru her feelings and realized that her sister triggers strong emotions and gets her very upset. It was suggested she not take phone calls from her sister which she agreed was a good idea. She did not need the Ativan and instead went and laid on her bed and practiced deep breathing. Talking to her peers is also a coping skill of hers and this was pointed out to her. S/I, H/I: SI A/VH: AH reported Sleep: None ADL's: Self Group attendance: yes Were meds taken: Yes Any med S/E: None Mental Status Exam Appearance: neat, wearing heavy sweater Eye contact: direct Behavior: Labile Speech: soft and clear Mood: Depressed, sad Affect: Sad Thought process: Paranoid Thought Content: Feelings of anxiety Cognition:alert Insight:poor Judgment:poor Interventions PRN's used: Tylenol Atarax, Mahin Salo Therapeutic interventions: establish rapport, active listening, maintain therapeutic environment, q15m safety checks, medication administration Restraints/seclusion/emergency medication: None Justification of Continued Inpatient Treatment: Requires interruption of current crisis, medication adjustments, and a safe and supportive environment to prevent readmission.
[2019-08-12] MEDS: hydrOXYzine 25 MG tablet PO PRN (16:10)
[2019-08-12] MEDS: mag hydrox/Alum hydrox/simeth 30ml oral suspension PO PRN (17:04)
[2019-08-12 19:57] VITALS: BP 152/94
[2019-08-12 20:01] VITALS: BP 152/94
[2019-08-12] MEDS: cyclobenzaprine 10mg tablet PO SCH (20:59)
[2019-08-12] MEDS: traZODone 50mg tablet PO PRN (21:01)
[2019-08-12] MEDS: LORazepam 1 MG tablet PO PRN (22:22)
--- NOTE | 2019-08-12 22:26 | NUR ---
Nursing Progress Note Legal hold: 5250 Client on involuntary status for DTS Report received from GENA Egan with use of SBAR Why are they here: The patient stopped her medications, decompensated and became suicidal, and attempted suicide by taking Klonopin, OXY and Flexeril. Assessment What has happened this shift: Pt is visible on the unit, mostly seen asking staff for things. Pt is pleasant in conversation but has a depressed affect. She asks communications writer for antibiotic ointment, communications writer inquires what for, and she shows communications writer that she has two open scratches on her right ankle. Pt admits that this was self inflicted by using her fingernails to scratch herself "a day or two ago." She says that she had told a staff member yesterday, but there is no documentation of this. Pictures were taken, antibiotic ointment and bandage applied. Pt said she did this because she was feeling overwhelmed and stressed about" everything." She continues to indorse suicidal ideation. Scientific Artist talked to pt about coping mechanisms and coming to staff when she feels like wanting to hurt herself or if she is feeling overwhelmed. Pt verbalized that she would talk to staff if she felt like she wanted to hurt herself. Pt was given prn ativan. S/I, H/I: endorses SI A/VH: does not endorse AH/VH this shift Sleep: See sleep assessment ADL's: Self Group attendance: None during shift change Were meds taken: Yes Any med S/E: None Mental Status Exam Appearance: neat, wearing green scrubs Eye contact: direct Behavior: isolates in her room or is asking staff for things Speech: WNL Mood: Depressed Affect: depressed Thought process: linear this shift Thought Content: anxiety, wanting to get sleep Cognition:alert Insight:poor Judgment:poor Interventions PRN's used: Ativan, trazodone, nicotine milo Therapeutic interventions: establish rapport, active listening, maintain therapeutic environment, q15m safety checks, medication administration Restraints/seclusion/emergency medication: None Justification of Continued Inpatient Treatment: Requires interruption of current crisis, medication adjustments, and a safe and supportive environment to prevent readmission.
[2019-08-13] MEDS: levoTHYROXINE 25mcg tablet PO SCH (07:33)
[2019-08-13] MEDS: valacyclovir 500mg tablet PO SCH ×3 (07:33→20:01)
[2019-08-13] MEDS: DOXYCYCLINE 100MG CAPSULE PO SCH ×2 (07:33→20:01)
[2019-08-13] MEDS: OLANZapine 2.5MG tablet PO SCH (07:33)
[2019-08-13] MEDS: thyroid, pork 30mg tablet PO SCH (07:33)
[2019-08-13] MEDS: nicotine 21mg patch - 24 hr TD SCH (07:33)
[2019-08-13] MEDS: lamoTRIgine 100mg tablet PO SCH (07:34)
[2019-08-13] MEDS: gabapentin 300mg capsule PO SCH ×3 (07:34→20:02)
[2019-08-13] MEDS: duloxetine 30mg CAPSULE.DR PO SCH ×2 (07:34→13:38)
[2019-08-13] MEDS: lithium carbonate 150mg capsule PO SCH ×3 (07:34→20:03)
[2019-08-13 07:52] VITALS: BP 138/90
[2019-08-13] MEDS: LORazepam 1 MG tablet PO PRN ×2 (08:56→19:27)
[2019-08-13] MEDS: hydrOXYzine 25 MG tablet PO PRN (10:48)
[2019-08-13] MEDS: aspirin/acetaminophen/caffeine tablet PO PRN (12:15)
[2019-08-13] MEDS: OLANZAPINE 5 MG TABLET PO SCH ×2 (13:38→20:01)
[2019-08-13] MEDS: acetaminophen 325mg tablet PO PRN (15:43)
--- NOTE | 2019-08-13 17:13 | NUR ---
Nursing Progress Note Legal hold: 5250 Client on involuntary status for DTS Report received from GENA Singh with use of SBAR Why are they here: The patient stopped her medications, decompensated and became suicidal, and attempted suicide by taking Klonopin, OXY and Flexeril. Assessment What has happened this shift: Pt up and visible on the unit. Pt continues to endorse depression and anxiety and requested ativan x 2 and atarax x 1 for anxiety. Pt also c/o migraine coming on and requested excedrine. Pt also endorses aud hallucinations telling her derogatory things. Pt spoke with outpt doc who directed her to change from fentanyl patches to lidocaine patches and she says this is what is causing her anxiety. Pt also endorses vague suicidal thoughts. S/I, H/I: SI A/VH: AH reported Sleep: None ADL's: Self Group attendance: yes Were meds taken: Yes Any med S/E: None Mental Status Exam Appearance: neat, wearing heavy sweater Eye contact: direct Behavior: Labile Speech: soft and clear Mood: Depressed, sad Affect: Sad Thought process: Paranoid Thought Content: Feelings of anxiety Cognition:alert Insight:poor Judgment:poor Interventions PRN's used: Tylenol Atarax, ativan, excedrine Therapeutic interventions: establish rapport, active listening, maintain therapeutic environment, q15m safety checks, medication administration Restraints/seclusion/emergency medication: None Justification of Continued Inpatient Treatment: Requires interruption of current crisis, medication adjustments, and a safe and supportive environment to prevent readmission.
[2019-08-13 20:00] VITALS: BP 132/83
[2019-08-13] MEDS: cyclobenzaprine 10mg tablet PO SCH (20:01)
[2019-08-13] MEDS: traZODone 50mg tablet PO SCH (20:20)
--- NOTE | 2019-08-13 22:13 | NUR ---
Nursing Progress Note Legal hold: 5250 Client on involuntary status for DTS Report received from GENA Egan with use of SBAR Why are they here: The patient stopped her medications, decompensated and became suicidal, and attempted suicide by taking Klonopin, OXY and Flexeril. Assessment What has happened this shift: Pt isolates to her room unless she needs something. She makes frequent requests. Pt is cooperative with 1:1 assessment, and medication compliant. She said she feels very anxious over her DR. possibly changing her fentanyl patch, and requests ativan which was given. Pt continues to endorse passive SI and AH. Workforce Planning Analyst does not observe pt responding to any internal stimuli this shift. S/I, H/I: endorses SI A/VH: endorses AH Sleep: See sleep assessment ADL's: Self Group attendance: None during shift change Were meds taken: Yes Any med S/E: None Mental Status Exam Appearance: neat, wearing green scrubs Eye contact: direct Behavior: isolates in her room or is asking staff for things Speech: WNL Mood: Depressed Affect: depressed Thought process: linear this shift Thought Content: anxiety, wanting to get sleep Cognition:alert Insight:poor Judgment:poor Interventions PRN's used: Ativan Therapeutic interventions: establish rapport, active listening, maintain therapeutic environment, q15m safety checks, medication administration Restraints/seclusion/emergency medication: None Justification of Continued Inpatient Treatment: Requires interruption of current crisis, medication adjustments, and a safe and supportive environment to prevent readmission.
[2019-08-14] MEDS: acetaminophen 325mg tablet PO PRN ×2 (06:04→18:00)
[2019-08-14] MEDS: nicotine 21mg patch - 24 hr TD SCH (07:39)
[2019-08-14] MEDS: gabapentin 300mg capsule PO SCH ×3 (07:39→21:27)
[2019-08-14] MEDS: hydrOXYzine 25 MG tablet PO SCH ×3 (07:39→17:58)
[2019-08-14] MEDS: duloxetine 30mg CAPSULE.DR PO SCH ×2 (07:39→13:08)
[2019-08-14] MEDS: levoTHYROXINE 25mcg tablet PO SCH (07:40)
[2019-08-14] MEDS: valacyclovir 500mg tablet PO SCH ×3 (07:40→20:27)
[2019-08-14] MEDS: spironolactone 50 MG tablet PO SCH (07:40)
[2019-08-14] MEDS: lithium carbonate 150mg capsule PO SCH ×3 (07:40→20:25)
[2019-08-14] MEDS: lamoTRIgine 100mg tablet PO SCH (07:40)
[2019-08-14] MEDS: DOXYCYCLINE 100MG CAPSULE PO SCH ×2 (07:40→20:26)
[2019-08-14] MEDS: thyroid, pork 30mg tablet PO SCH (07:40)
[2019-08-14] MEDS: OLANZapine 2.5MG tablet PO SCH (07:40)
[2019-08-14] MEDS: aspirin/acetaminophen/caffeine tablet PO PRN (08:14)
[2019-08-14 08:37] VITALS: BP 133/79
[2019-08-14] MEDS ORDERED: phenazopyridine 100mg tablet PO ONE (12:00)
[2019-08-14] MEDS: OLANZAPINE 5 MG TABLET PO SCH ×2 (13:07→20:26)
[2019-08-14] MEDS: LORazepam 1 MG tablet PO PRN ×2 (14:23→20:27)
[2019-08-14] MEDS: phenazopyridine 100mg tablet PO SCH (17:58)
[2019-08-14 20:00] VITALS: BP 153/99
[2019-08-14] MEDS: cyclobenzaprine 10mg tablet PO SCH (20:26)
[2019-08-14] MEDS: traZODone 50mg tablet PO SCH (20:26)
[2019-08-14] MEDS: mag hydrox/Alum hydrox/simeth 30ml oral suspension PO PRN (23:03)
--- NOTE | 2019-08-14 23:45 | NUR ---
Nursing Progress Note Legal hold: 5250 Client on involuntary status for DTS Report received from GENA Egan with use of SBAR Why are they here: The patient stopped her medications, decompensated and became suicidal, and attempted suicide by taking Klonopin, OXY and Flexeril. Assessment What has happened this shift: Pt is upset at shift change and tells typewriter assembler that she was mad at the day shift charge nurse. She is perseverating on this and keeps saying, "I am just so upset and I am legally blind and I feel like staff is just rude." She then says "well I did it again" she shows typewriter assembler that she has two open scratches on her left ankle. Pt admits that this was self inflicted by using her fingernails to scratch herself. Pictures were taken, antibiotic ointment and bandage applied. Pt said she did this because she was feeling overwhelmed and like she can't talk to anyone. She continues to indorse suicidal ideation saying things like, "yea life is hard, manuela don't want to do it anymore." She then says she has restless leg syndrome and wants to know what medications are good for this condition. Pt was encouraged to talk with the tomorrow. Pt then comes up and says she had "bad heartburn", given 30ML Maalox. Pt then paces the unit and says she can not sleep. Fur Pointer informs her that it is still too early for her ativan. She then asks for benadryl. Fur Pointer informs her benadryl is not on her regimen, but encourages her to lay down and try to sleep. Fur Pointer talked to pt about coping mechanisms and coming to staff when she feels like wanting to hurt herself or if she is feeling overwhelmed. Pt verbalized that she would talk to staff if she felt like she wanted to hurt herself. S/I, H/I: endorses SI A/VH: does not endorse AH/VH this shift Sleep: See sleep assessment ADL's: Self Group attendance: None during shift change Were meds taken: Yes Any med S/E: None Mental Status Exam Appearance: neat, wearing green scrubs Eye contact: direct Behavior: isolates in her room or is asking staff for things Speech: WNL Mood: Depressed Affect: depressed Thought process: linear this shift Thought Content: anxiety, wanting to get sleep Cognition:alert Insight:poor Judgment:poor Interventions PRN's used: Ativan,Maalox Therapeutic interventions: establish rapport, active listening, maintain therapeutic environment, q15m safety checks, medication administration Restraints/seclusion/emergency medication: None Justification of Continued Inpatient Treatment: Requires interruption of current crisis, medication adjustments, and a safe and supportive environment to prevent readmission.
[2019-08-15] MEDS: levoTHYROXINE 25mcg tablet PO SCH (07:50)
[2019-08-15] MEDS: thyroid, pork 30mg tablet PO SCH (07:51)
[2019-08-15] MEDS: DOXYCYCLINE 100MG CAPSULE PO SCH ×2 (07:52→20:56)
[2019-08-15] MEDS: aspirin/acetaminophen/caffeine tablet PO PRN (07:52)
[2019-08-15] MEDS: OLANZapine 2.5MG tablet PO SCH (07:52)
[2019-08-15] MEDS: gabapentin 300mg capsule PO SCH ×3 (07:52→20:57)
[2019-08-15] MEDS: phenazopyridine 100mg tablet PO SCH ×3 (07:52→17:00)
[2019-08-15] MEDS: lamoTRIgine 100mg tablet PO SCH (07:53)
[2019-08-15] MEDS: valacyclovir 500mg tablet PO SCH ×3 (07:53→20:57)
[2019-08-15] MEDS: lithium carbonate 150mg capsule PO SCH ×3 (07:53→20:56)
[2019-08-15] MEDS: nicotine 21mg patch - 24 hr TD SCH (07:54)
[2019-08-15] MEDS: duloxetine 30mg CAPSULE.DR PO SCH ×2 (07:54→12:49)
[2019-08-15] MEDS: spironolactone 50 MG tablet PO SCH (07:54)
[2019-08-15] MEDS: hydrOXYzine 25 MG tablet PO SCH ×3 (07:54→16:04)
[2019-08-15 08:00] VITALS: BP 137/87
[2019-08-15] MEDS ORDERED: BUPRENORPHINE (Butrans) 10MCG PATCH.TDWK (7-day patch) TD ONE ×2 (09:00→10:00)
[2019-08-15] MEDS: LORazepam 1 MG tablet PO PRN ×2 (09:38→19:51)
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
[2019-08-15] MEDS: OLANZAPINE 5 MG TABLET PO SCH ×2 (12:51→20:56)
[2019-08-15] MEDS: acetaminophen 325mg tablet PO PRN ×2 (15:38→19:46)
[2019-08-15] MEDS: NICOTINE POLACRILEX 2 MG LOZENGE BC PRN ×2 (16:04→19:39)
[2019-08-15] MEDS ORDERED: pramipexole 0.25mg tablet PO ONE (16:20)
[2019-08-15] MEDS ORDERED: vitamin D (cholecalciferol) 1,000 unit tablet PO ONE (16:30)
[2019-08-15] MEDS: cloNIDine 0.1 mg tablet PO PRN (17:00)
--- NOTE | 2019-08-15 18:18 | NUR ---
Nursing Progress Note Legal hold: 5250 Client on involuntary status for DTS Report received from GENA Egan with use of SBAR Why are they here: The patient stopped her medications, decompensated and became suicidal, and attempted suicide by taking Klonopin, OXY and Flexeril. Assessment What has happened this shift: Patient up in the morning at shift change. Patient does not have any issue with taking her medications and asks routinely for her meds. She understand what each is for and is able to identify them. Patient showered this morning. Patient attends all groups and is overheard telling the therapist I really enjoy your groups. RN asked patient what her plans are when she leaves the unit and what she will be doing when she goes home for Thanksgiving. Patient states that she does not feel safe to go home and is afraid that she may hurt herself. Patients states that she works and does plan to go back to work when she leaves here. Patient states that she is anxious, has pain, has acid reflux, and restless leg. She reports not sleeping well last night and states that she would like a new medication for that. Fentanyl patch removed and Butrans patched applied. Monitored for S/S of withdrawal with COWS Scale. Patient score a 2 at 1530. S/I, H/I: S/I no plan A/VH: none reported Sleep: 6hrs NOC ADL's: Independent, showered today Group attendance: yes Were meds taken: Yes Any med S/E: None Mental Status Exam Appearance: appropriate Eye contact: direct Behavior: anxious Speech: WNL Mood: reports depression, not observed by this RN Affect: restricted Thought process: linear this shift Thought Content: anxiety, wanting to get sleep Cognition: A/O x4 Insight:poor Judgment:poor Interventions PRN's used: Ativan, Maalox, Tylenol, Nicotine lozenge, clonidine, Therapeutic interventions: establish rapport, active listening, maintain therapeutic environment, q15m safety checks, medication administration Restraints/seclusion/emergency medication: None Justification of Continued Inpatient Treatment: Requires interruption of current crisis, medication adjustments, and a safe and supportive environment to prevent readmission.
[2019-08-15] MEDS: pramipexole 0.25mg tablet PO SCH (19:39)
[2019-08-15] MEDS ORDERED: cloNIDine 0.1 mg tablet PO ONE (20:00)
[2019-08-15 20:36] VITALS: BP 118/75
[2019-08-15] MEDS: cyclobenzaprine 10mg tablet PO SCH (20:57)
[2019-08-15] MEDS: traZODone 50mg tablet PO SCH ×2 (20:57→21:59)
--- NOTE | 2019-08-15 23:54 | NUR ---
Nursing Progress Note Legal hold: 2320 Client on involuntary status for DTS Report received from GENA Morse with use of SBAR Why are they here: The patient stopped her medications, decompensated and became suicidal, and attempted suicide by taking Klonopin, OXY and Flexeril. Assessment What has happened this shift: Patient was observed pacing the aisle during shift change. Pt continues to be intrusive and asking for medications. Was cooperative and allowed this check writer to perform 1:1 physical assessment. Denies AH/VH but does indicate S/I. Patient did not state a plan S/I, H/I: endorses SI A/VH: does not endorse AH/VH this shift Sleep: See sleep assessment ADL's: Self Group attendance: None during shift change Were meds taken: Yes Any med S/E: None Mental Status Exam Appearance: neat, wearing green scrubs Eye contact: direct Behavior: isolates in her room or is asking staff for things Speech: WNL Mood: Depressed Affect: depressed Thought process: linear this shift Thought Content: anxiety, wanting to get sleep Cognition:alert Insight:poor Judgment:poor Interventions PRN's used: AtivanMaalox Therapeutic interventions: establish rapport, active listening, maintain therapeutic environment, q15m safety checks, medication administration Restraints/seclusion/emergency medication: None Justification of Continued Inpatient Treatment: Requires interruption of current crisis, medication adjustments, and a safe and supportive environment to prevent readmission. Addendum: 08/16/19 at 0006 by Amara Bundy RN Pt is complaining because she states that she feel frustrated due to her medications and believes that she is going through withdrawals. She scored a 2 on the COWS assessment tool. She was compliant with all her medications and was given Ativan and a second dose of Trazodone. Pt also asked for Neosporin and Bandage for her cuts that she has on her ankle. Pt took another shower this evening. Pt remained in her room isolative for most of the night.
[2019-08-16] MEDS: cloNIDine 0.1 mg tablet PO PRN ×2 (06:59→15:52)
[2019-08-16] MEDS: levoTHYROXINE 25mcg tablet PO SCH (07:08)
[2019-08-16 07:54] VITALS: BP 122/80
[2019-08-16] MEDS: lithium carbonate 150mg capsule PO SCH ×3 (08:17→20:19)
[2019-08-16] MEDS: phenazopyridine 100mg tablet PO SCH ×3 (08:18→17:28)
[2019-08-16] MEDS: pramipexole 0.25mg tablet PO SCH ×2 (08:18→20:20)
[2019-08-16] MEDS: thyroid, pork 30mg tablet PO SCH (08:18)
[2019-08-16] MEDS: spironolactone 50 MG tablet PO SCH (08:19)
[2019-08-16] MEDS: DOXYCYCLINE 100MG CAPSULE PO SCH ×2 (08:19→20:19)
[2019-08-16] MEDS: duloxetine 30mg CAPSULE.DR PO SCH ×2 (08:19→12:35)
[2019-08-16] MEDS: hydrOXYzine 25 MG tablet PO SCH ×3 (08:20→17:29)
[2019-08-16] MEDS: valacyclovir 500mg tablet PO SCH ×3 (08:20→20:20)
[2019-08-16] MEDS: OLANZapine 2.5MG tablet PO SCH (08:20)
[2019-08-16] MEDS: vitamin D (cholecalciferol) 1,000 unit tablet PO SCH (08:21)
[2019-08-16] MEDS: nicotine 21mg patch - 24 hr TD SCH (08:22)
[2019-08-16] MEDS: gabapentin 300mg capsule PO SCH ×3 (08:22→20:18)
[2019-08-16] MEDS: lamoTRIgine 100mg tablet PO SCH (08:27)
[2019-08-16] MEDS: aspirin/acetaminophen/caffeine tablet PO PRN (09:03)
[2019-08-16] MEDS: LORazepam 1 MG tablet PO PRN (10:00)
[2019-08-16] MEDS: OLANZAPINE 5 MG TABLET PO SCH ×2 (12:36→20:19)
[2019-08-16] MEDS: NICOTINE POLACRILEX 2 MG LOZENGE BC PRN ×2 (12:37→17:39)
[2019-08-16] MEDS ORDERED: OLANZAPINE 5 MG TABLET PO ONE (14:35)
[2019-08-16] MEDS: acetaminophen 325mg tablet PO PRN (17:38)
--- NOTE | 2019-08-16 18:19 | NUR ---
Nursing Progress Note Legal hold: 5250 Client on involuntary status for DTS Report received from GENA Singh with use of SBAR Why are they here: The patient stopped her medications, decompensated and became suicidal, and attempted suicide by taking Klonopin, OXY and Flexeril. Assessment What has happened this shift: Patient asleep at change of shift and awoken for breakfast. Patient requesting many of her PRN medications and up to staff very often. Dr. Dow adjusting patients medications. Patient does not appear to be having any adverse effects from the Butrans. Patient stated she is depressed and is currently suicidal. Patient also states she is hearing voices. Patient given med for migraine and sciatic pain today. S/I, H/I: SI A/VH: AH reported Sleep: None ADL's: Self Group attendance: yes Were meds taken: Yes Any med S/E: None Mental Status Exam Appearance: neat, wearing heavy sweater Eye contact: direct Behavior: Labile Speech: soft and clear Mood: Depressed, sad Affect: Sad Thought process: Paranoid Thought Content: Feelings of anxiety Cognition:alert Insight:poor Judgment:poor Interventions PRN's used: Tylenol Atarax, ativan, excedrine, nicotine Therapeutic interventions: establish rapport, active listening, maintain therapeutic environment, q15m safety checks, medication administration Restraints/seclusion/emergency medication: None Justification of Continued Inpatient Treatment: Requires interruption of current crisis, medication adjustments, and a safe and supportive environment to prevent readmission.
[2019-08-16 19:57] VITALS: BP 112/59
[2019-08-16] MEDS: cyclobenzaprine 10mg tablet PO SCH (20:18)
[2019-08-16] MEDS: traZODone 50mg tablet PO SCH (20:19)
[2019-08-16] MEDS: ondansetron 4mg rapidly disintigrating tab PO PRN (21:45)
--- NOTE | 2019-08-17 03:34 | NUR ---
Nursing Progress Note Legal hold: 5250 Client on involuntary status for DTS Report received from GENA Morse with use of SBAR Why are they here: The patient stopped her medications, decompensated and became suicidal, and attempted suicide by taking Klonopin, OXY and Flexeril. Assessment What has happened this shift: Patient observed laying in her bed awake at the beginning of shift. Pt began asking about medications shortly after report. Asking about dosing, quantity per day and PRN accessibility. She was easily settled with each explanation and remained pleasant and cooperative with all care. Pt COWS assessment score was one. Patient continues ABx for acne and reported nausea after HS snack and was provided PRN Zofran with effective results. Pt originally refused to take off nicotine patch but later reported "bad dreams" and allowed this nurse to remove nicotine patch. S/I, H/I: none reported A/VH: none reported Sleep: See sleep assessment ADL's: Self Group attendance: no groups this shift Were meds taken: Yes Any med S/E: Nightmares r/t nicotine patch Mental Status Exam Appearance: neat, wearing green scrubs Eye contact: direct Behavior: isolates in her room Speech: clear, steady, audible Mood: "ok" Affect: depressed Thought process: linear this shift Thought Content: medications Cognition:alert Insight:poor Judgment:poor Interventions PRN's used: Zofran, effective Therapeutic interventions: establish rapport, active listening, maintain therapeutic environment, q15m safety checks, medication administration Restraints/seclusion/emergency medication: None Justification of Continued Inpatient Treatment: Requires interruption of current crisis, medication adjustments, and a safe and supportive environment to prevent readmission.
[2019-08-17] MEDS: NICOTINE POLACRILEX 2 MG LOZENGE BC PRN (05:03)
[2019-08-17] MEDS: ondansetron 4mg rapidly disintigrating tab PO PRN (05:36)
[2019-08-17] MEDS: DOXYCYCLINE 100MG CAPSULE PO SCH ×2 (07:27→20:04)
[2019-08-17] MEDS: pramipexole 0.25mg tablet PO SCH ×2 (07:28→20:05)
[2019-08-17] MEDS: valacyclovir 500mg tablet PO SCH ×2 (07:28→12:54)
[2019-08-17] MEDS: thyroid, pork 30mg tablet PO SCH (07:28)
[2019-08-17] MEDS: lithium carbonate 150mg capsule PO SCH ×2 (07:29→20:05)
[2019-08-17] MEDS: OLANZapine 2.5MG tablet PO SCH (07:29)
[2019-08-17] MEDS: phenazopyridine 100mg tablet PO SCH ×3 (07:30→17:56)
[2019-08-17] MEDS: lamoTRIgine 100mg tablet PO SCH (07:30)
[2019-08-17] MEDS: vitamin D (cholecalciferol) 1,000 unit tablet PO SCH (07:30)
[2019-08-17] MEDS: levoTHYROXINE 25mcg tablet PO SCH (07:30)
[2019-08-17] MEDS: duloxetine 30mg CAPSULE.DR PO SCH ×2 (07:31→12:53)
[2019-08-17] MEDS: gabapentin 300mg capsule PO SCH ×3 (07:31→20:04)
[2019-08-17] MEDS: spironolactone 50 MG tablet PO SCH (07:31)
[2019-08-17] MEDS: hydrOXYzine 25 MG tablet PO SCH ×3 (07:31→17:56)
[2019-08-17] MEDS: nicotine 21mg patch - 24 hr TD SCH (07:32)
[2019-08-17 08:00] VITALS: BP 133/80
--- NOTE | 2019-08-17 09:01 | NUR ---
Assisted Ct with going on-line to apply for SDI on her phone. The website was having problems and she said she would do the paper forms which her mom had mailed her. Ct asked if she could go home before Thanksgiving. Encouraged her to talk to her doctor about it. [place] Zamudio
[2019-08-17] MEDS: cloNIDine 0.1 mg tablet PO PRN ×2 (12:13→19:37)
--- NOTE | 2019-08-17 12:20 | NUR ---
DISCHARGE PLANNING Spoke with MELLY Okeefe (ph# [phone]) with [facility] to inquire about transportation. She reported they can transport, they just need 24 hour notice. Will call back on Tue. Ct would like to discharge and be home for Thanksgiving. [place] Zamudio
[2019-08-17] MEDS: OLANZAPINE 5 MG TABLET PO SCH ×2 (12:53→20:05)
[2019-08-17] MEDS: mag hydrox/Alum hydrox/simeth 30ml oral suspension PO PRN (14:03)
[2019-08-17] MEDS: magnesium hydroxide 30ml (MOM) UD suspension PO PRN (14:04)
[2019-08-17] MEDS: acetaminophen 325mg tablet PO PRN ×2 (14:11→17:57)
--- NOTE | 2019-08-17 16:43 | NUR ---
Nursing Progress Note Legal hold: 5250 Client on involuntary status for DTS Report received from GENA Anderson with use of SBAR Why are they here: The patient stopped her medications, decompensated and became suicidal, and attempted suicide by taking Klonopin, OXY and Flexeril. Assessment What has happened this shift: Patient up this morning taking a shower. She states that she is unable to sleep because she gets so anxious. Patient does not have an issue with taking her meds and requests more medications throughout the day. After taking morning medications patient requests clonidine for symptoms of withdrawal. Patient describes her symptoms as nausea, achy, and anxious. Patient joins others for breakfast, forgets she asked for the medication and instead makes a request for Excedrin for a migraine, Excedrin administered. Patient asks if there is any medication she can take for a stuffy nose. RN suggest aromatherapy (lavender and eucalyptus) and patient accepts. Patient requests Magnesia for stomach acid and MOM for constipation. Patient request Tylenol for sciatica, Excedrin for her migraine again later in the afternoon and then requests Cogentin for a twitch in her lip. Patient states Im hoping to go home next week, like Tuesday. She says that she would like to have her medications set up in daily dosing bubble packs prior to leaving. Her pharmacy is [facility] in [facility]. S/I, H/I: none reported A/VH: none reported Sleep: 6.5hrs NOC ADL's: Self, showered today Group attendance: yes Were meds taken: Yes Any med S/E: patient reports twitch in her lip Mental Status Exam Appearance: appropriate, clean Eye contact: direct Behavior: friendly Speech: soft tone, normal rate and rhythm Mood: good Affect: restricted Thought process: linear Thought Content: various ailments and medications Cognition: A/O x4 Insight: poor Judgment: poor Interventions PRN's used: Excedrin, Magnesium, MOM, Tylenol, clonidine Therapeutic interventions: 1:1 therapeutic assessment, maintained safe therapeutic milieu, provided active listening with positive reinforcement, provided medication administration/education/monitoring as needed; Q15 safety checks. Restraints/seclusion/emergency medication: N/A Justification of Continued Inpatient Treatment: Continued therapeutic support and medication management needed to provide stabilization, prevent decompensation, and improve coping mechanisms decreasing risk to patient and re-admittance.
[2019-08-17 19:00] VITALS: BP 135/77
[2019-08-17] MEDS: cyclobenzaprine 10mg tablet PO SCH (20:04)
[2019-08-17] MEDS: traZODone 50mg tablet PO SCH (20:04)
[2019-08-17] MEDS: LORazepam 1 MG tablet PO PRN (21:56)
--- NOTE | 2019-08-18 03:59 | NUR ---
Nursing Progress Note Legal hold: 5250 Client on involuntary status for DTS Report received from GENA Morse with use of SBAR Why are they here: The patient stopped her medications, decompensated and became suicidal, and attempted suicide by taking Klonopin, OXY and Flexeril. Assessment What has happened this shift: Patient talking on the phone at the beginning of shift expressing irritation r/t her "glasses falling apart." Patient pleasant and cooperative with all care and compliant with all medication. Patient reported suicidal thoughts without a plan, stating "they're just thoughts, the Zyprexa has been helping me." Patient c/o constipation and requested MOM however at the time she requested it was too early for a second dose and patient was offered and drank a prune juice. She expressed wanting to go home before Thanksgiving and wanted to talk with the doctor about D/C plan in which she was able to do. Patient reported to staff to have Rx called into [facility] in [facility]. Patient c/o increased anxiety r/t wanting to go home and has received PRN clonidine and Ativan this shift. Patient also reported difficulty sleeping and her nicotine patch was removed at this time and has not made further complaints. S/I, H/I: none reported A/VH: none reported Sleep: See sleep assessment ADL's: Self Group attendance: no groups this shift Were meds taken: Yes Any med S/E: Nightmares r/t nicotine patch Mental Status Exam Appearance: neat, wearing green scrubs Eye contact: direct Behavior: talking on the phone, socializing Speech: clear, steady, audible Mood: "good" Affect: flat Thought process: linear this shift Thought Content: discharge Cognition: alert Insight: poor Judgment: poor Interventions PRN's used: Clonidine and Ativan, effective Therapeutic interventions: establish rapport, active listening, maintain therapeutic environment, q15m safety checks, medication administration Restraints/seclusion/emergency medication: None Justification of Continued Inpatient Treatment: Requires interruption of current crisis, medication adjustments, and a safe and supportive environment to prevent readmission.
[2019-08-18] MEDS: duloxetine 30mg CAPSULE.DR PO SCH ×2 (07:32→12:30)
[2019-08-18] MEDS: vitamin D (cholecalciferol) 1,000 unit tablet PO SCH (07:33)
[2019-08-18] MEDS: thyroid, pork 30mg tablet PO SCH (07:33)
[2019-08-18] MEDS: DOXYCYCLINE 100MG CAPSULE PO SCH ×2 (07:33→20:19)
[2019-08-18] MEDS: pramipexole 0.25mg tablet PO SCH ×2 (07:33→20:16)
[2019-08-18] MEDS: OLANZapine 2.5MG tablet PO SCH (07:33)
[2019-08-18] MEDS: spironolactone 50 MG tablet PO SCH (07:33)
[2019-08-18] MEDS: hydrOXYzine 25 MG tablet PO SCH ×3 (07:33→17:16)
[2019-08-18] MEDS: phenazopyridine 100mg tablet PO SCH ×3 (07:33→17:16)
[2019-08-18] MEDS: levoTHYROXINE 25mcg tablet PO SCH (07:33)
[2019-08-18] MEDS: magnesium hydroxide 30ml (MOM) UD suspension PO PRN (07:34)
[2019-08-18] MEDS: lithium carbonate 150mg capsule PO SCH ×2 (07:34→20:17)
[2019-08-18] MEDS: cloNIDine 0.1 mg tablet PO PRN (07:34)
[2019-08-18] MEDS: nicotine 21mg patch - 24 hr TD SCH (07:34)
[2019-08-18] MEDS: lamoTRIgine 100mg tablet PO SCH (07:34)
[2019-08-18] MEDS: gabapentin 300mg capsule PO SCH ×3 (07:35→20:19)
[2019-08-18 08:53] VITALS: BP 130/65
[2019-08-18] MEDS: aspirin/acetaminophen/caffeine tablet PO PRN (10:19)
--- NOTE | 2019-08-18 10:39 | NUR ---
Reassessment: Pt continues with 75-100% PO intake on regular diet meeting nutrient needs. Wt stable. LBM 08/15. Pt with MoM PRN last given today. No nutrition diagnosis at this time. Will continue to follow. Rec: 1. continue regular diet 2. routine bowel care 3. wt per rx Addendum: 08/18/19 at [address] Amended: Links added.
[2019-08-18] MEDS ORDERED: TRAZ-251 PO (11:03)
[2019-08-18] MEDS ORDERED: OLAN5TAB26 PO ×2 (11:03)
[2019-08-18] MEDS ORDERED: SPIR50TA5 PO (11:03)
[2019-08-18] MEDS ORDERED: THYR30TA21 PO (11:03)
[2019-08-18] MEDS ORDERED: LEVO25TA7 PO (11:03)
[2019-08-18] MEDS ORDERED: OLAN2.5T28 PO (11:03)
[2019-08-18] MEDS ORDERED: CLON0.1T2 PO (11:03)
[2019-08-18] MEDS ORDERED: PRAM0.252 PO ×2 (11:03)
[2019-08-18] MEDS ORDERED: NICO-687 TD (11:03)
[2019-08-18] MEDS ORDERED: HYDR-3686 PO (11:03)
[2019-08-18] MEDS ORDERED: CYCL-1 PO (11:03)
[2019-08-18] MEDS ORDERED: LAMO100T PO (11:03)
[2019-08-18] MEDS ORDERED: DULO30CA52 PO (11:03)
[2019-08-18] MEDS ORDERED: GABA600T13 PO (11:03)
[2019-08-18] MEDS: OLANZAPINE 5 MG TABLET PO SCH ×2 (12:30→20:18)
[2019-08-18] MEDS: acetaminophen 325mg tablet PO PRN ×2 (17:17→21:25)
--- NOTE | 2019-08-18 17:57 | NUR ---
Nursing Progress Note Legal hold: 5250 Client on involuntary status for DTS Report received from Joann Jhaveri RN with use of SBAR Why are they here: The patient stopped her medications, decompensated and became suicidal, and attempted suicide by taking Klonopin, OXY and Flexeril. Assessment What has happened this shift: Patient is observed up and about in the morning at shift change. She politely waits for staff to get settled prior to taking her morning shower. Patient requests MOM for constipation and clonidine for her withdrawal symptoms. Patient showers, takes her medications and then eats breakfast with others in the group room. Patient checks to make sure that Rxs get called into [facility] in [facility] and placed in bubble packs, not single med dosing but multi-med dosing according to the time of day. Patient requests to go over her meds with this RN, RN assures patient that this will be done at time of discharge. Patient requests to have her [place] returned [place] [facility] , patient is informed that this may not be able to be switched in our system. Patient states that she is ready to get home and get back to work. S/I, H/I: none reported A/VH: none reported Sleep: 6.75hrs NOC ADL's: independent, showered today Group attendance: yes Were meds taken: Yes Any med S/E: none reported Mental Status Exam Appearance: clean, appropriate Eye contact: direct Behavior: friendly, calm, planning for discharge Speech: clear, steady, audible Mood: "good" Affect: restricted, appropriate Thought process: linear, goal directed r/t discharge Thought Content: discharge Cognition: a/o xs 4 Insight: good Judgment: fair to good Interventions PRN's used: Clonidine for withdrawal symptoms, MOM for constipation, Excedrin for migraine Therapeutic interventions: establish rapport, active listening, maintain therapeutic environment, q15m safety checks, medication administration Restraints/seclusion/emergency medication: None Justification of Continued Inpatient Treatment: Requires interruption of current crisis, medication adjustments, and a safe and supportive environment to prevent readmission.
[2019-08-18 20:00] VITALS: BP 118/75
[2019-08-18] MEDS: traZODone 50mg tablet PO SCH (20:17)
[2019-08-18] MEDS: cyclobenzaprine 10mg tablet PO SCH (20:19)
--- NOTE | 2019-08-19 02:05 | NUR ---
Nursing Progress Note Legal hold: 5250 Client on involuntary status for DTS Report received from GENA Batista with use of SBAR Why are they here: The patient stopped her medications, decompensated and became suicidal, and attempted suicide by taking Klonopin, OXY and Flexeril. Assessment What has happened this shift: Pt is walking around unit at discharge. Pt states depressed 2/10, anxiety 8 r/t to having medications sorted by discharge; RN reassured pt that staff will ensure proper medications are ordered and will review with pt prior to discharge. Pt states she is looking forward to going home and feels much better, "I'm excited I get to have Thanksgiving with my family." Pt stated headache still bothering her 03/05 pain and requested more Tylenol. Pt had confusion regarding Butrans patch that was placed on Wednesday 08/15: this RN called night pharmacist, Nithya, to clarify that patch is to be removed 08/22 @ 1010 and then needs to be followed up with the pt's primary MD as it was a one time order in the hospital after Fentanyl patch was D/C'd. RN relayed this information and pt verbalized understanding. Pt compliant with all medications and went to sleep shortly after administration. S/I, H/I: Denies both A/VH: Denies both Sleep: See Sleep Assessment ADL's: Independent Group attendance: N/A Were meds taken: Yes Any med S/E: None reported nor observed Mental Status Exam Appearance: Clean, appropriately wearing unit scrub pants and personal sweater; thick eyeglasses and hair in a ponytail Eye contact: Direct Behavior: Cooperative, Pleasant, Attended HS snack, Talking on phone in room, reading Speech: Clear, normal rate and rhythm Mood: "I feel good", Anxious 05/05 Affect: Restricted with brightening Thought process: Linear Thought Content: Focused on discharge planning Cognition: A/Ox4 Insight: Good Judgment: Fair to Good Interventions PRN's used: Tylenol Therapeutic interventions: Establish rapport, active listening, maintain therapeutic environment, q15m safety checks, medication administration Restraints/seclusion/emergency medication: None Justification of Continued Inpatient Treatment: Requires interruption of current crisis, medication adjustments, and a safe and supportive environment to prevent readmission. Pt discharge pending for Tuesday.
[2019-08-19] MEDS: magnesium hydroxide 30ml (MOM) UD suspension PO PRN (06:54)
[2019-08-19] MEDS: duloxetine 30mg CAPSULE.DR PO SCH ×2 (06:55→13:10)
[2019-08-19] MEDS: levoTHYROXINE 25mcg tablet PO SCH (06:55)
[2019-08-19] MEDS: gabapentin 300mg capsule PO SCH ×3 (06:56→20:45)
[2019-08-19 07:30] VITALS: BP 129/81
[2019-08-19] MEDS: DOXYCYCLINE 100MG CAPSULE PO SCH ×2 (07:41→20:43)
[2019-08-19] MEDS: vitamin D (cholecalciferol) 1,000 unit tablet PO SCH (07:42)
[2019-08-19] MEDS: OLANZapine 2.5MG tablet PO SCH (07:42)
[2019-08-19] MEDS: pramipexole 0.25mg tablet PO SCH ×2 (07:43→20:44)
[2019-08-19] MEDS: hydrOXYzine 25 MG tablet PO SCH ×3 (07:44→17:48)
[2019-08-19] MEDS: lamoTRIgine 100mg tablet PO SCH (07:46)
[2019-08-19] MEDS: thyroid, pork 30mg tablet PO SCH (07:46)
[2019-08-19] MEDS: lithium carbonate 150mg capsule PO SCH ×2 (07:46→20:43)
[2019-08-19] MEDS: nicotine 21mg patch - 24 hr TD SCH (07:55)
[2019-08-19] MEDS: spironolactone 50 MG tablet PO SCH (07:56)
[2019-08-19] MEDS: phenazopyridine 100mg tablet PO SCH ×3 (07:56→17:47)
[2019-08-19] MEDS: ondansetron 4mg rapidly disintigrating tab PO PRN (09:07)
[2019-08-19] MEDS: cloNIDine 0.1 mg tablet PO PRN (09:07)
[2019-08-19] MEDS: acetaminophen 325mg tablet PO PRN ×2 (09:08→20:46)
[2019-08-19] MEDS ORDERED: LITH150C8 PO (11:48)
[2019-08-19] MEDS: OLANZAPINE 5 MG TABLET PO SCH ×2 (13:09→20:45)
[2019-08-19] MEDS: aspirin/acetaminophen/caffeine tablet PO PRN ×2 (13:49→15:43)
[2019-08-19] MEDS: NICOTINE POLACRILEX 2 MG LOZENGE BC PRN (14:28)
--- NOTE | 2019-08-19 17:55 | NUR ---
Nursing Progress Note Legal hold: 5250 Client on involuntary status for DTS Report received from Joann Jhaveri RN with use of SBAR Why are they here: The patient stopped her medications, decompensated and became suicidal, and attempted suicide by taking Klonopin, OXY and Flexeril. Assessment What has happened this shift: Pt. awake at start of shift requesting medication for constipation. Pt. given milk of magnesia. Pt. took all medications and ate all meals in the community room. Pt.s scripts faxed to [facility] in [facility]. 1:1 done at bedside. Pt. denies SI/HI, A/V H. Pt. reports she is ready for discharge and is looking forward to going home for [facility]. Pt. given Tylenol this AM for back pain. Pt. given Clonidine this AM for anxiety. Pt. received Excedrin x2 for headache. S/I, H/I: Denies both A/VH: Denies both Sleep: Pt. napped x2 ADL's: Independent Group attendance: Yes Were meds taken: Yes Any med S/E: None reported nor observed Mental Status Exam Appearance: Clean, appropriately wearing unit scrub pants and personal sweater; thick eyeglasses and hair in a ponytail Eye contact: Direct Behavior: Cooperative, Pleasant, Speech: Clear, normal rate and rhythm Mood: Euthymic with some anxiety Affect: Flat Thought process: Linear Thought Content: Focused on discharge planning Cognition: A/Ox4 Insight: Good Judgment: Fair to Good Interventions PRN's used: Clonidine, Excedrine, Tylenol Therapeutic interventions: Establish rapport, active listening, maintain therapeutic environment, q15m safety checks, medication administration Restraints/seclusion/emergency medication: None Justification of Continued Inpatient Treatment: Requires interruption of current crisis, medication adjustments, and a safe and supportive environment to prevent readmission. Pt discharge pending for Tuesday.
[2019-08-19] MEDS: mag hydrox/Alum hydrox/simeth 30ml oral suspension PO PRN (18:56)
[2019-08-19 19:57] VITALS: BP 128/77
[2019-08-19] MEDS: traZODone 50mg tablet PO SCH (20:43)
[2019-08-19] MEDS: cyclobenzaprine 10mg tablet PO SCH (20:43)
--- NOTE | 2019-08-20 01:10 | NUR ---
Nursing Progress Note Legal hold: 5250 Client on involuntary status for DTS Report received from GENA Shepherd with use of SBAR Why are they here: The patient stopped her medications, decompensated and became suicidal, and attempted suicide by taking Klonopin, OXY and Flexeril. Assessment What has happened this shift: Pt. in group room at start of shift. Pt asked for Tylenol for sciatica. Pt describes her mood as "good" said she is ready to go home. Concerned about prescriptions. Told pt that day shift said they hed faxed her prescriptions to the pharmacy pt still concerned. Encouraged to call her pharmacy tomorrow and make sure her prescriptions would be ready. Pt pleasant and cooperative with care went to sleep easily. S/I, H/I: Denies both A/VH: Denies both Sleep: Pt. napped x2 ADL's: Independent Group attendance: Yes Were meds taken: Yes Any med S/E: None reported nor observed Mental Status Exam Appearance: Clean, appropriately wearing unit scrub pants and personal sweater; thick eyeglasses and hair in a ponytail Eye contact: Direct Behavior: Cooperative, Pleasant, Speech: Clear, normal rate and rhythm Mood: Euthymic with some anxiety Affect: Flat Thought process: Linear Thought Content: Focused on discharge planning Cognition: A/Ox4 Insight: Good Judgment: Fair to Good Interventions PRN's used: Tylenol Maalox Therapeutic interventions: Establish rapport, active listening, maintain therapeutic environment, q15m safety checks, medication administration Restraints/seclusion/emergency medication: None Justification of Continued Inpatient Treatment: Requires interruption of current crisis, medication adjustments, and a safe and supportive environment to prevent readmission. Pt discharge pending for Tuesday.
[2019-08-20] MEDS: acetaminophen 325mg tablet PO PRN (07:25)
[2019-08-20] MEDS: levoTHYROXINE 25mcg tablet PO SCH (07:26)
[2019-08-20 08:04] VITALS: BP 126/80
--- NOTE | 2019-08-20 08:19 | NUR ---
DISCHARGE PLANNING Called MELLY Okeefe (ph# [phone]) with [facility] to arrange for transportation. She reported she did NOT receive any calls yesterday for transportation. She reported a laundry route driver will be here around 11 or 12 tomorrow. [place] Zamudio
[2019-08-20] MEDS: nicotine 21mg patch - 24 hr TD SCH (08:23)
[2019-08-20] MEDS: duloxetine 30mg CAPSULE.DR PO SCH ×2 (08:24→13:21)
[2019-08-20] MEDS: hydrOXYzine 25 MG tablet PO SCH ×3 (08:24→17:48)
[2019-08-20] MEDS: lithium carbonate 150mg capsule PO SCH ×2 (08:25→20:47)
[2019-08-20] MEDS: lamoTRIgine 100mg tablet PO SCH (08:26)
[2019-08-20] MEDS: OLANZapine 2.5MG tablet PO SCH (08:26)
[2019-08-20] MEDS: vitamin D (cholecalciferol) 1,000 unit tablet PO SCH (08:27)
[2019-08-20] MEDS: gabapentin 300mg capsule PO SCH ×3 (08:27→20:42)
[2019-08-20] MEDS: spironolactone 50 MG tablet PO SCH (08:27)
[2019-08-20] MEDS: thyroid, pork 30mg tablet PO SCH (08:28)
[2019-08-20] MEDS: pramipexole 0.25mg tablet PO SCH ×2 (08:28→20:42)
[2019-08-20] MEDS: phenazopyridine 100mg tablet PO SCH ×3 (08:28→17:48)
[2019-08-20] MEDS: mag hydrox/Alum hydrox/simeth 30ml oral suspension PO PRN (09:56)
[2019-08-20] MEDS: aspirin/acetaminophen/caffeine tablet PO PRN ×2 (12:33→14:50)
[2019-08-20] MEDS ORDERED: ketorolac trometh inj. 60 MG/2 ML VIAL IM ONE (13:00)
[2019-08-20] MEDS: OLANZAPINE 5 MG TABLET PO SCH ×2 (13:20→20:41)
[2019-08-20] MEDS: ondansetron 4mg rapidly disintigrating tab PO PRN ×2 (13:31→20:52)
--- NOTE | 2019-08-20 17:45 | NUR ---
Nursing Progress Note Legal hold: 5250 Client on involuntary status for DTS Report received from GENA Pham with use of SBAR Why are they here: The patient stopped her medications, decompensated and became suicidal, and attempted suicide by taking Klonopin, OXY and Flexeril. Assessment What has happened this shift: Pt. awake at start shift and requesting tylenol for back pain rated 7/10. Pt. given tyleno with good effect. Pt. took medications and ate all meals in community room. 1:1 done at bedside. Pt. denies SI/HI, A/V hallucinations. Pt. c/o of migrain rated 8/10 and given Excedrin. Pt. reports excedrin not working and pt. given 1 time dose of Tordol 60mg IM. Pt. continued to c/o of migraine and given 2nd dose of excedrin. Pt. c/o of nausea and given zofran with minimal effect. Pt. isolative to room and laying in bed majority of afternoon. Pt.'s scripts faxed to [facility] in [place]. Pt.reports she is anxious about her discharge tomorrow. Pt. reports she lives with he rmother and her mother does not agree with all the medications she is taking. S/I, H/I: Denies A/VH: Denies Sleep: Pt. napped throughout afternoon. ADL's: Independent Group attendance: Yes Were meds taken: Yes Any med S/E: None reported nor observed Mental Status Exam Appearance: Clean, appropriately wearing unit scrub pants and personal sweater; thick eyeglasses and hair in a ponytail Eye contact: Direct Behavior: Cooperative, isolative Speech: Clear, normal rate and rhythm Mood: anxious Affect: Flat Thought process: Linear Thought Content: fearful of discharge Cognition: A/Ox4 Insight: Good Judgment: Fair to Good Interventions PRN's used: Tylenol, tordol, excedrin, zofran Therapeutic interventions: Establish rapport, active listening, maintain therapeutic environment, q15m safety checks, medication administration Restraints/seclusion/emergency medication: None Justification of Continued Inpatient Treatment: Requires interruption of current crisis, medication adjustments, and a safe and supportive environment to prevent readmission. Pt discharge pending for Tuesday.
[2019-08-20] MEDS: LORazepam 1 MG tablet PO PRN (17:49)
[2019-08-20 20:29] VITALS: BP 110/76
[2019-08-20] MEDS: traZODone 50mg tablet PO SCH (20:42)
[2019-08-20] MEDS: cyclobenzaprine 10mg tablet PO SCH (20:42)
--- NOTE | 2019-08-21 00:28 | NUR ---
Nursing Progress Note Legal hold: 5250 Client on involuntary status for DTS Report received from Vero RN with use of SBAR Why are they here: The patient stopped her medications, decompensated and became suicidal, and attempted suicide by taking Klonopin, OXY and Flexeril. Assessment What has happened this shift: Pt up on unit at start of shift. Requesting cell phone be charged so she can recieve a call from SS tommorrow. Pt has a good relationship with [facility] and is concerned about her needs. Pt socialized in group room with other pts bu c/o migraine and went to room. Requested and given Zofran for nausea RT to migraine. Pt says she is looking [id number] to discharge tomorrow. Had some questions about home medications, questions answered, pt verbalized understanding. S/I, H/I: Denies A/VH: Denies Sleep: Pt. napped throughout afternoon. ADL's: Independent Group attendance: Yes Were meds taken: Yes Any med S/E: None reported nor observed Mental Status Exam Appearance: Clean, appropriately wearing unit scrub pants and personal sweater; thick eyeglasses and hair in a ponytail Eye contact: Direct Behavior: Cooperative, isolative Speech: Clear, normal rate and rhythm Mood: anxious Affect: Flat Thought process: Linear Thought Content: fearful of discharge Cognition: A/Ox4 Insight: Good Judgment: Fair to Good Interventions PRN's used: Zofran Therapeutic interventions: Establish rapport, active listening, maintain therapeutic environment, q15m safety checks, medication administration Restraints/seclusion/emergency medication: None Justification of Continued Inpatient Treatment: Requires interruption of current crisis, medication adjustments, and a safe and supportive environment to prevent readmission. Pt discharge pending for Tuesday.
[2019-08-21] MEDS: levoTHYROXINE 25mcg tablet PO SCH (06:59)
[2019-08-21] MEDS: acetaminophen 325mg tablet PO PRN (07:01)
[2019-08-21] MEDS: cloNIDine 0.1 mg tablet PO PRN (07:35)
[2019-08-21] MEDS: pramipexole 0.25mg tablet PO SCH (07:38)
[2019-08-21] MEDS: OLANZapine 2.5MG tablet PO SCH (07:38)
[2019-08-21] MEDS: lithium carbonate 150mg capsule PO SCH (07:39)
[2019-08-21] MEDS: duloxetine 30mg CAPSULE.DR PO SCH ×2 (07:40→11:23)
[2019-08-21] MEDS: gabapentin 300mg capsule PO SCH ×2 (07:40→11:23)
[2019-08-21] MEDS: hydrOXYzine 25 MG tablet PO SCH ×2 (07:41→11:24)
[2019-08-21] MEDS: lamoTRIgine 100mg tablet PO SCH (07:41)
[2019-08-21] MEDS: phenazopyridine 100mg tablet PO SCH ×2 (07:42→11:23)
[2019-08-21] MEDS: spironolactone 50 MG tablet PO SCH (07:42)
[2019-08-21] MEDS: thyroid, pork 30mg tablet PO SCH (07:43)
[2019-08-21] MEDS: vitamin D (cholecalciferol) 1,000 unit tablet PO SCH (07:43)
[2019-08-21] MEDS: nicotine 21mg patch - 24 hr TD SCH (07:45)
[2019-08-21] MEDS: LORazepam 1 MG tablet PO PRN (10:47)
[2019-08-21] MEDS: OLANZAPINE 5 MG TABLET PO SCH (11:23)
[2019-08-21] MEDS: aspirin/acetaminophen/caffeine tablet PO PRN (12:20)
--- NOTE | 2019-08-21 13:55 | NUR ---
Discharge Note: Discharge time 1355. Pt. discharged to her home via [facility] transportation. Pt. discharged with all of her belongings. Pt. was calm and cooperative. Denies SI/HI,A/V Hallucinations. All scripts faxed to [facility] in [place]. RN reviewed medications and and f/u plans with pt. and pt. verbalizes understanding. Pt. discharged with scripts for nicotine replacement.
== END 2019-08-21 13:55 | disposition home or self-care (01) | DRG 885 ==
LOC: ADULT MH 18:37
PROVIDERS: ADMIT Psychiatry & Neurology Psychiatry; ATTEND Psychiatry & Neurology Psychiatry
PROC: 3E02340 Introduction of Influenza Vaccine into Muscle, Percutaneous Approach (ICD-10-PCS; principal; 2019-08-08)
PROC: 3E0234Z Introduction of Serum, Toxoid and Vaccine into Muscle, Percutaneous Approach (ICD-10-PCS; 2019-08-08)
DX: F31.5 Bipolar disorder, current episode depressed, severe, with psychotic features (principal); R45.851 Suicidal ideations; H54.8 Legal blindness, as defined in USA; E03.9 Hypothyroidism, unspecified; F12.90 Cannabis use, unspecified, uncomplicated; J45.909 Unspecified asthma, uncomplicated; B00.9 Herpesviral infection, unspecified; F17.210 Nicotine dependence, cigarettes, uncomplicated; G25.81 Restless legs syndrome; L70.9 Acne, unspecified; G89.29 Other chronic pain; K76.0 Fatty (change of) liver, not elsewhere classified; M54.9 Dorsalgia, unspecified; G43.909 Migraine, unspecified, not intractable, without status migrainosus; Z79.890 Hormone replacement therapy; Z81.8 Family history of other mental and behavioral disorders; Z91.5 Personal history of self-harm; Z23 Encounter for immunization; Z91.14 Patient's other noncompliance with medication regimen; Z79.899 Other long term (current) drug therapy
CPT/HCPCS: 36415; 80053; 80061; 80178; 83036; 83735; 87081; 90732; 99285; J1885; Q2037; Z7610